=== PATIENT | female | born 1980 | race African-American/Black ===

== ENCOUNTER 2018-05-06 21:29 | Emergency (ER) | payer SELFPAY ==
--- NOTE | 2018-05-06 22:16 | ULT ---
LEFT LOWER EXTREMITY VENOUS ULTRASOUND HISTORY: Left lower extremity pain and edema. TECHNIQUE: Multiplanar amado scale and color doppler images were obtained in a left lower extremity venous ultras ound. Spectral analysis of the doppler waveforms were performed. FINDINGS: The left common femoral vein, profunda femoral vein, superficial femoral vein, and popliteal vein are normal in appearance without visible thrombus. These vessels demonstrate normal compression, flow an d augmentation. The posterior tibial vein and greater saphenous vein are also patent. IMPRESSION: No evidence of left lower extremity DVT. POS: LAYA
== END 2018-05-06 22:45 | disposition home or self-care (01) ==
LOC: ERS 21:29
DX: M79.89 Other specified soft tissue disorders (principal); R79.1 Abnormal coagulation profile; E11.9 Type 2 diabetes mellitus without complications; I10 Essential (primary) hypertension; Z79.899 Other long term (current) drug therapy; Z79.84 Long term (current) use of oral hypoglycemic drugs; Z79.82 Long term (current) use of aspirin

== ENCOUNTER 2018-05-11 16:01 | Inpatient (IN) | payer SELFPAY ==
[2018-05-11 17:04] LABS: #Basophils 0.1 thou/uL (0.0-0.2); #Eosinphils 0.2 thou/uL (0.0-0.7); #Lymphocytes 3.5 thou/uL (1.20-3.40); #Monocytes 0.8 thou/uL (0.11-0.59); #Neutrophils 4.9 thou/uL (1.40-6.50); %Basophils 0.9 % (0.0-1.0); %Eosinophils 1.9 % (0.0-10.0); %Lymphocytes 37.1 % (21.0-51.0); %Monocytes 8.1 % (0.0-10.0); Mean Corpuscular HGB CONC 33.2 g/dL (32.0-36.0); Mean Corpuscular Hemoglobin 30.2 pg (27.0-31.0); Mean Corpuscular Volume 90.9 fL (78.0-98.0); Mean Platelet Volume 6.7 fL (7.4-10.4); Platelet Count 453 thou/uL (130-400); RBC Distribution Width 11.6 % (11.5-14.5); Red Blood Cell (RBC) Count 4.95 mill/uL (4.20-5.40); White Blood Cell (WBC) Count 9.5 thou/uL (4.8-10.8)
[2018-05-11 17:31] LABS: ALT (SGPT) 398 U/L (8-55); AST (SGOT) 605 U/L (5-34); Albumin 3.9 g/dL (3.5-5.0); Alkaline Phosphatase 75 U/L (40-150); Anion Gap 15 mmol/L (10-20); BUN (Urea Nitrogen) 11 mg/dL (7.0-18.7); Bilirubin, Total 0.4 mg/dL (0.2-1.2); Calc. Creatinine Clearance 0 mL/min (70-130); Calcium 9.5 mg/dL (7.8-10.44); Carbon Dioxide 23 mmol/L (22-29); Chloride 103 mmol/L (98-107); Estimated GFR-MDRD Greater than 90; Globulin 3.7 g/dL (2.4-3.5); Glucose 135 mg/dL (70-105); Potassium 3.8 mmol/L (3.5-5.1); Protein, Total 7.6 g/dL (6.0-8.3); Sodium 137 mmol/L (136-145)
[2018-05-11 18:39] LABS: CK (CPK) 22154 U/L (29-168)
[2018-05-11] MEDS ORDERED: Sodium Bicarbonate 150 MEQ in Dextrose 5% in Water 1,000 ML IV SCH (19:00)
[2018-05-11 19:47] LABS: Bilirubin Negative (Negative); Blood, Urine Negative (Negative); Clarity CLOUDY (Clear); Glucose, Urine (Dipstick) Negative (Negative); Leukocyte Small (Negative); Nitrite Negative (Negative); Protein, Urine (Dipstick) Negative (Neg-Trace); Specific Gravity, Urine 1.022 (1.002-1.036)
[2018-05-11 19:49] LABS: Hyaline Casts/LPF 0-3 HYALINE CAST LPF (0-3 Hyaline); Pathc Cast-AUWi Flag 0.14 (0-2.49)
[2018-05-11 19:55] LABS: Cocaine Metabolite Screen Not Detected (NotDetected); Medtox Reader # READER 4; Phencyclidine (PCP) Not Detected (NotDetected); THC/Cannabinoid Screen Not Detected (NotDetected)
[2018-05-11 19:56] LABS: Amphetamine Not Detected (NotDetected); Barbiturates Screen Not Detected (NotDetected); Benzodiazepine Screen Not Detected (NotDetected); Medtox Control Line Valid? VALID (VALID); Methadone Not Detected (NotDetected); Methamphetamine Not Detected (NotDetected); Opiate Screen Detected (NotDetected); Oxycodone Screen Not Detected (NotDetected); Tricyclic Screen Not Detected (NotDetected)
[2018-05-11 20:01] LABS: Bacteria/HPF 1+ HPF (None Seen); RBC/HPF 0-3 HPF (0-3)
--- NOTE | 2018-05-11 20:56 | ULT ---
RIGHT UPPER QUADRANT ULTRASOUND: 05/11/18 HISTORY: Abdominal pain. Multiple longitudinal and transverse images of the right upper quadrant of the abdomen is obtained us ing a multihertz curvilinear transducer. Real time, color flow, and spectral waveform doppler analysi s used to evaluate the right upper quadrant of the abdomen. Images demonstrate some fibrofatty changes seen in the liver. There is some hepatomegaly noted. Liver measurement measures 18.6 cm in the midclavicular line. The gallbladder is visualized containing numerous echogenic foci compatible with gallstones. The gall bladder wall is not significantly thickened measuring 2 mm. The common bile duct is of normal size me asuring 6.7 mm being the upper limits of normal in size. No definite evidence of intrahepatic biliary dilatation is seen. The visualized portion of pancreas is unremarkable. The right is unremarkable with no evidence of masses or lesions. IMPRESSION: 1. Cholelithiasis without evidence of obvious cholecystitis. 2. Moderately dilated common bile duct. Choledocholithiasis cannot be completely excluded. Corre late with laboratory findings and clinical evaluation. POS: LAYA
[2018-05-11] MEDS ORDERED: Ondansetron HCl/PF 4 MG/2 ML Vial IVP PRN (22:03)
[2018-05-11] MEDS ORDERED: Bisacodyl 5 MG TAB PO PRN (22:03)
[2018-05-11] MEDS ORDERED: Acetaminophen 650 MG Suppository PR PRN (22:03)
[2018-05-11] MEDS ORDERED: Senokot 8.6 MG TAB PO PRN (22:03)
[2018-05-11] MEDS ORDERED: Ondansetron ODT 4 MG TAB PO PRN (22:03)
[2018-05-11 23:19] VITALS: BMI 54.1
[2018-05-11] MEDS: Acetaminophen 325 MG TAB PO PRN (23:49)
[2018-05-12] MEDS: Sodium Chloride 0.9% 1,000 ML IV SCH ×6 (00:15→20:24)
[2018-05-12] MEDS ORDERED: Dextrose 50% Abboject 50 ML SYRINGE SLOW IVP PRN (00:18)
[2018-05-12] MEDS ORDERED: Dextrose 5% in Water 1,000 ML IV PRN (00:18)
[2018-05-12] MEDS ORDERED: HumaLOG 300 UNITS/3 ML VIAL SC PRN (00:18)
[2018-05-12 00:52] LABS: Anion Gap 12 mmol/L (10-20); BUN (Urea Nitrogen) 11 mg/dL (7.0-18.7); Calc. Creatinine Clearance 205 mL/min (70-130); Carbon Dioxide 27 mmol/L (22-29); Chloride 103 mmol/L (98-107); Estimated GFR-MDRD Greater than 90; Glucose 164 mg/dL (70-105); Potassium 3.6 mmol/L (3.5-5.1); Sodium 138 mmol/L (136-145)
--- NOTE | 2018-05-12 00:52 | HP ---
CHIEF COMPLAINT: The patient is complaining of bilateral lower extremity pain and upper extremity pain. HISTORIAN: The patient. HISTORY OF PRESENT ILLNESS: This is a 38-year-old female with past medical history of hypertension, diabetes mellitus type 2, who is presenting to the ED with generalized pain. Per patient, the pain started at the lower extremities bilaterally, a week prior to this admission. The patient stated that, she was trying to get up when she was sitting down, but it was very difficult for her to get up. She had to push herself and this has never happened to her before. Patient stated that she thought things were going to get better, but after 4 days of waiting to see if things are going to get better, things turn to the worse. These were progressively getting worse. Now, her upper extremities were also feeling very weak and very painful and it was spreading to her neck. Per the patient, she went to [facility] and labs were done and patient stated that she also got an ultrasound of the left lower extremity to rule out DVT. Patient stated that she was discharged home after the test came back negative and the patient was told to follow up with her primary care physician. Patient followed up with the primary care physician on Thursday, which was yesterday prior to the day of admission and patient stated that after going to her primary care doctor, she was not feeling too well, so she came back to the emergency room. Patient stated that the labs were run again and she was discharged home once again, but throughout the course of the day, which is the day of the admission, which is 05/12/2018, the patient received a phone call from the primary care physician who stated that she had a CK of 20,000 and then because of this lab abnormality, she was supposed to come to the emergency room. Patient came to the emergency room and the patient was then admitted to our service. REVIEW OF SYSTEMS: Positive for generalized pain and weakness. Positive for muscle soreness and some shortness of breath, otherwise as documented in the HPI. All other systems were reviewed and are negative. PAST MEDICAL HISTORY: Hypertension and diabetes mellitus. FAMILY HISTORY: Diabetes and cancer runs through the patient's family. PAST SURGICAL HISTORY: Right hip, right wrist, left ankle surgeries. PSYCHIATRIC HISTORY: The patient does not have any psych history. SOCIAL HISTORY: Patient drinks occasionally. The patient denies smoking and the patient denies using illicit drugs. ALLERGIES: The patient does not have any drug allergies. CURRENT MEDICATIONS: Aspirin 81 mg daily, hydrochlorothiazide, she takes 25 mg daily, lisinopril, she takes 5 mg daily, and metformin she takes 1000 b.i.d. PHYSICAL EXAMINATION: VITAL SIGNS: Patient's blood pressure was 149/77, pulse 118, respiratory rate of 16, O2 sat is 96 on room air. GENERAL APPEARANCE: The patient is sitting in bed at a 45 degree angle, does not appear to be in any distress. Patient is speaking in full sentences. HEENT: Normocephalic, atraumatic. Pupils are equally round and reactive to light. No scleral icterus. NECK: Supple. No meningeal signs. Trachea is midline. CHEST: Breath sounds are clear, no wheezing, no rales, no rhonchi. CARDIOVASCULAR: Patient is tachycardic, positive S1, S2. No murmurs, no rubs, no gallops appreciated. ABDOMEN: Obese abdomen, nontender, nondistended. No pulsatile masses. No rigidity, no guarding. EXTREMITIES: Upper extremity, patient does not have any tenderness at the upper extremities. No edema, no clubbing, no cyanosis. Lower extremity, patient does have some soreness of the lower extremity with palpation. Good pulses. Right lower extremity has some weakness compared to the left. NEUROLOGIC: Cranial nerves II-XII grossly intact. No focal neurologic deficits noted. SKIN: Warm, dry and intact. No rashes seen. PSYCHIATRIC: The patient is alert and oriented x3. IMAGING: EKG patient is sinus tachycardic. ED COURSE: The patient is on bicarbonate drip and was given morphine 4 mg for pain and patient was given 2 L of normal saline. Abdomen ultrasound right upper quadrant shows cholelithiasis without evidence of obvious cholecystitis, moderately dilated common bile duct, choledocholithiasis cannot be completely excluded, correlate with laboratory findings and clinical evaluations. LABORATORY DATA: WBC 9.5, hemoglobin 15.0, hematocrit 45.0, platelet count is 453. Sodium 137, potassium 3.8, chloride 103, anion gap 15, BUN is 11, creatinine is 0.71, glucose 135, calcium 9.5, AST 605, ALT 398, alkaline phosphatase 75. Creatinine kinase is 22,154. Albumin is 3.9. Lipase is 50. Urinalysis: Urine color is yellow, cloudy, trace ketones, negative for blood, negative for nitrite, negative for bilirubin 1.0 urobilinogen, small leukoesterase. Toxicology positive for opioids. ASSESSMENT AND PLAN: This is a 38-year-old female with past medical history of diabetes and hypertension being admitted for: 1. Rhabdomyolysis, etiology unclear at this time, but cannot rule out inflammatory myositis or viral myositis. At this point, we will give patient IV fluids. We will discontinue D5 with bicarbonate. We will do normal saline at 200 mL per hour and we will trend BMP and we will monitor the patient's CK. We will also monitor patient's labs in the morning. 2. History of diabetes. We will hold metformin at this time. We will do insulin sliding scale. 3. Hypertension. We will continue patient on lisinopril. We will hold hydrochlorothiazide at this time. We will monitor the patient's blood pressure and we will continue other blood pressure medication as needed. 4. Deep venous thrombosis and gastrointestinal prophylaxis. 5. Transaminitis. We will trend patient's AST and ALT in the morning. DISCUSSION: At this point, it is very important for patient to see a master fire control technician or merchandise supervisor and possibly get EMG outpatient or to get muscle biopsy just to evaluate and possibly diagnose the patient with myositis. We will follow up on hepatitis panel as well since the patient had transaminitis. YANA
[2018-05-12 01:21] LABS: CK (CPK) 16566 U/L (29-168)
[2018-05-12 01:41] LABS: ALT (SGPT) 305 U/L (8-55); AST (SGOT) 428 U/L (5-34); Albumin 3.1 g/dL (3.5-5.0); Alkaline Phosphatase 70 U/L (40-150); Anion Gap 15 mmol/L (10-20); BUN (Urea Nitrogen) 11 mg/dL (7.0-18.7); Bilirubin, Total 0.3 mg/dL (0.2-1.2); Calc. Creatinine Clearance 205 mL/min (70-130); Calcium 8.1 mg/dL (7.8-10.44); Carbon Dioxide 24 mmol/L (22-29); Chloride 104 mmol/L (98-107); Estimated GFR-MDRD Greater than 90; Globulin 2.9 g/dL (2.4-3.5); Glucose 167 mg/dL (70-105); Magnesium 1.8 mg/dL (1.6-2.6); Potassium 3.6 mmol/L (3.5-5.1); Sodium 139 mmol/L (136-145)
[2018-05-12 01:50] LABS: Hep C IgG Ab Non-Reactive (NonReactive); Hep C Index 0.08 S/CO (0-0.79); Hepatitis B Core IGM Abs Non-Reactive (NonReactive)
[2018-05-12 02:55] LABS: Hep B Surf AB Reactive (NonReactive)
[2018-05-12 02:56] LABS: HBSAB Concentration 23.07 mIU/mL; Hep B Core Total Ab Reactive (NonReactive); Hep B Core Total Index 10.97 S/CO (0-0.79)
[2018-05-12 08:51] LABS: Anion Gap 9 mmol/L (10-20); BUN (Urea Nitrogen) 9 mg/dL (7.0-18.7); Calc. Creatinine Clearance 217 mL/min (70-130); Calcium 7.8 mg/dL (7.8-10.44); Carbon Dioxide 27 mmol/L (22-29); Chloride 106 mmol/L (98-107); Estimated GFR-MDRD Greater than 90; Glucose 118 mg/dL (70-105); Sodium 138 mmol/L (136-145)
[2018-05-12] MEDS: Aspirin 81 mg Enteric Coated Tablet PO SCH (08:58)
[2018-05-12] MEDS: Lisinopril 5 MG TAB PO SCH (08:58)
[2018-05-12 09:18] LABS: CK (CPK) 15706 U/L (29-168)
[2018-05-12] MEDS ORDERED: Ketorolac Tromethamine 30 MG/ML VIAL IVP SCH (10:15)
--- NOTE | 2018-05-12 13:17 | PDOC.PN ---
- Subjective Encounter Start Date: 05/12/18 Encounter Start Time: 13:05 Subjective: f/u for rhabdomyolysis/transaminitis of unclear etiology. Receiving IVF's -: and bicarbonate. Overall feeling better. - Objective Resuscitation Status: Resuscitation Status FULL:Full Resuscitation MAR Reviewed: Yes Vital Signs & Weight: Vital Signs (12 hours) Temp Pulse Resp BP BP Pulse Ox 05/12/18 11:49 98.3 F 81 18 166/85 H 96 05/12/18 09:04 97 05/12/18 08:58 90 111/68 05/12/18 08:03 97.9 F 111 H 18 111/68 93 L Weight Weight 277 lb 1.6 oz I&O: 05/11/18 05/12/18 05/13/18 06:59 06:59 06:59 Intake Total 1216 Balance 1216 Result Diagrams: 05/11/18 16:57 05/12/18 08:22 Additional Labs: Accuchecks 05/12/18 05/12/18 11:19 05:31 POC Glucose 137 H 118 H Laboratory Tests 05/11/18 05/12/18 05/12/18 16:57 00:18 00:21 AST 605 H 428 H ALT 398 H 305 H Creatine Kinase 27234 H 89788 H Hep Bs Antibody Hep Bs Antibody Index Hep B Core Total Ab Hep B Core IgM Ab Hepatitis C Antibody 05/12/18 05/12/18 00:21 08:22 AST ALT Creatine Kinase 85341 H Hep Bs Antibody Reactive Hep Bs Antibody Index 23.07 Hep B Core Total Ab Reactive H Hep B Core IgM Ab Non-Reactive Hepatitis C Antibody Non-Reactive Radiology Reviewed by me: Yes (ABD sono - cholelithiasis without cholecystitis) Phys Exam - Physical Examination Constitutional: NAD HEENT: PERRLA, sclera anicteric, oral pharynx no lesions Neck: no nodes, no JVD, supple, full ROM Respiratory: no wheezing, no rhonchi, clear to auscultation bilateral Cardiovascular: RRR, no significant murmur, no rub, gallop Gastrointestinal: soft, non-tender, no distention, positive bowel sounds Musculoskeletal: no edema, pulses present Neurological: normal sensation, moves all 4 limbs Psychiatric: normal affect, A&O x 3 Skin: no rash, normal turgor, cap refill <2 seconds Dx/Plan (1) Rhabdomyolysis Code(s): M62.82 - RHABDOMYOLYSIS Status: Acute Comment: Etiology unclear, improving with supportive mgmt, continue IVF's, serial CK's (2) Transaminitis Code(s): R74.0 - NONSPEC ELEV OF LEVELS OF TRANSAMNS & LACTIC ACID DEHYDRGNSE Status: Acute Comment: Likely secondary to #1, improving, avoid hepatotoxic medications, serial LFT's (3) Diabetes type 2, controlled Code(s): E11.9 - TYPE 2 DIABETES MELLITUS WITHOUT COMPLICATIONS Status: Chronic Comment: ADA, serial accuchecks, hold Metformin another 24h (4) Hypertension Code(s): I10 - ESSENTIAL (PRIMARY) HYPERTENSION Status: Chronic Qualifiers: Hypertension type: essential hypertension Qualified Code(s): I10 - Essential (primary) hypertension Comment: Continue Lisinopril, hold HCTZ, serial monitoring (5) Morbid obesity with BMI of 50.0-59.9, adult Code(s): E66.01 - MORBID (SEVERE) OBESITY DUE TO EXCESS CALORIES; Z68.43 - BODY MASS INDEX (BMI) 50-59.9 , ADULT Status: Chronic Comment: Low-fat diet - Plan out of bed/ambulate Stable currently -: Decrease IVF's 125ml/h -: Hold HCTZ and Metformin -: Toradol 15mg IV q6h prn pain -: AM lab: BMP, CK, Mg++ * .
[2018-05-12] MEDS: Acetaminophen 325 MG TAB PO PRN (14:58)
[2018-05-12] MEDS: Ketorolac Tromethamine 30 MG/ML VIAL IVP PRN (16:55)
[2018-05-13 04:53] LABS: ALT (SGPT) 288 U/L (8-55); AST (SGOT) 399 U/L (5-34); Albumin 3.1 g/dL (3.5-5.0); Alkaline Phosphatase 60 U/L (40-150); Anion Gap 9 mmol/L (10-20); BUN (Urea Nitrogen) 11 mg/dL (7.0-18.7); Bilirubin, Total 0.3 mg/dL (0.2-1.2); Calc. Creatinine Clearance 214 mL/min (70-130); Calcium 8.2 mg/dL (7.8-10.44); Carbon Dioxide 26 mmol/L (22-29); Chloride 108 mmol/L (98-107); Estimated GFR-MDRD Greater than 90; Globulin 2.7 g/dL (2.4-3.5); Glucose 128 mg/dL (70-105); Protein, Total 5.8 g/dL (6.0-8.3); Sodium 139 mmol/L (136-145)
[2018-05-13] MEDS: Sodium Chloride 0.9% 1,000 ML IV SCH ×4 (05:21→20:46)
[2018-05-13] MEDS: Ketorolac Tromethamine 30 MG/ML VIAL IVP PRN ×3 (05:22→23:08)
[2018-05-13] MEDS: Aspirin 81 mg Enteric Coated Tablet PO SCH (09:28)
[2018-05-13] MEDS: Lisinopril 5 MG TAB PO SCH (09:28)
--- NOTE | 2018-05-13 15:00 | PDOC.PN ---
- Subjective Encounter Start Date: 05/13/18 Encounter Start Time: 14:40 Subjective: f/u for rhabdomyolysis of unclear etiology receiving IVF's. Feeling better -: overall with some soreness of LE's. - Objective Resuscitation Status: Resuscitation Status FULL:Full Resuscitation MAR Reviewed: Yes Vital Signs & Weight: Vital Signs (12 hours) Temp Pulse Resp BP BP Pulse Ox 05/13/18 09:28 90 123/86 05/13/18 07:37 98.5 F 90 20 123/84 98 05/13/18 07:27 98 Weight Weight 277 lb 1.6 oz I&O: 05/12/18 05/13/18 05/14/18 06:59 06:59 06:59 Intake Total 1216 2873 Balance 1216 2873 Result Diagrams: 05/11/18 16:57 05/13/18 04:20 Additional Labs: Accuchecks 05/13/18 05/13/18 05/12/18 11:31 04:39 19:55 POC Glucose 93 115 H 111 H 05/12/18 16:50 POC Glucose 96 Laboratory Tests 05/11/18 05/12/18 05/12/18 16:57 00:18 00:21 AST 605 H 428 H ALT 398 H 305 H Creatine Kinase 18872 H 61459 H Hep Bs Antibody Hep Bs Antibody Index Hep B Core Total Ab Hep B Core IgM Ab Hepatitis C Antibody 05/12/18 05/12/18 00:21 08:22 AST ALT Creatine Kinase 02701 H Hep Bs Antibody Reactive Hep Bs Antibody Index 23.07 Hep B Core Total Ab Reactive H Hep B Core IgM Ab Non-Reactive Hepatitis C Antibody Non-Reactive Phys Exam - Physical Examination Constitutional: NAD HEENT: PERRLA, sclera anicteric, oral pharynx no lesions Neck: no nodes, no JVD, supple, full ROM Respiratory: no wheezing, no rales, no rhonchi, clear to auscultation bilateral S1, S2 Cardiovascular: RRR (S), no significant murmur, no rub, gallop Gastrointestinal: soft, non-tender, no distention, positive bowel sounds Musculoskeletal: no edema, pulses present Neurological: normal sensation, moves all 4 limbs Psychiatric: normal affect, A&O x 3 Skin: no rash, normal turgor, cap refill <2 seconds Dx/Plan (1) Rhabdomyolysis Code(s): M62.82 - RHABDOMYOLYSIS Status: Acute Comment: Etiology unclear, improving with supportive mgmt, continue IVF's, serial CK's (2) Transaminitis Code(s): R74.0 - NONSPEC ELEV OF LEVELS OF TRANSAMNS & LACTIC ACID DEHYDRGNSE Status: Acute Comment: Likely secondary to #1, improving, avoid hepatotoxic medications, serial LFT's (3) Diabetes type 2, controlled Code(s): E11.9 - TYPE 2 DIABETES MELLITUS WITHOUT COMPLICATIONS Status: Chronic Comment: ADA, serial accuchecks, hold Metformin another 24h (4) Hypertension Code(s): I10 - ESSENTIAL (PRIMARY) HYPERTENSION Status: Chronic Qualifiers: Hypertension type: essential hypertension Qualified Code(s): I10 - Essential (primary) hypertension Comment: Continue Lisinopril, hold HCTZ, serial monitoring (5) Morbid obesity with BMI of 50.0-59.9, adult Code(s): E66.01 - MORBID (SEVERE) OBESITY DUE TO EXCESS CALORIES; Z68.43 - BODY MASS INDEX (BMI) 50-59.9 , ADULT Status: Chronic Comment: Low-fat diet - Plan plan discussed w/ family, out of bed/ambulate Stable overall -: Decrease IVF's 100ml/h -: OOB/ambulate -: Avoid hepatotoxic agents -: Lab: CPK today * AM lab: CMP, CK
[2018-05-14 05:02] LABS: ALT (SGPT) 253 U/L (8-55); AST (SGOT) 284 U/L (5-34); Alkaline Phosphatase 57 U/L (40-150); Anion Gap 8 mmol/L (10-20); BUN (Urea Nitrogen) 12 mg/dL (7.0-18.7); Bilirubin, Total 0.3 mg/dL (0.2-1.2); Calc. Creatinine Clearance 227 mL/min (70-130); Calcium 8.1 mg/dL (7.8-10.44); Carbon Dioxide 26 mmol/L (22-29); Chloride 111 mmol/L (98-107); Estimated GFR-MDRD Greater than 90; Globulin 2.7 g/dL (2.4-3.5); Glucose 125 mg/dL (70-105); Protein, Total 5.7 g/dL (6.0-8.3); Sodium 141 mmol/L (136-145)
[2018-05-14 05:28] LABS: CK (CPK) 12166 U/L (29-168)
[2018-05-14 07:24] VITALS: TEMP 98.3
[2018-05-14] MEDS: Aspirin 81 mg Enteric Coated Tablet PO SCH (09:06)
[2018-05-14] MEDS: Lisinopril 5 MG TAB PO SCH (09:06)
[2018-05-14] MEDS: Acetaminophen 325 MG TAB PO PRN (09:06)
[2018-05-14 09:09] VITALS: BP 115/83
[2018-05-14] MEDS: Sodium Chloride 0.9% 1,000 ML IV SCH (12:37)
--- NOTE | 2018-05-14 13:29 | DIS ---
DATE OF ADMISSION: 05/11/2018 DATE OF DISCHARGE: 05/14/2018 DISCHARGE DIAGNOSES: 1. Acute rhabdomyolysis, etiology unclear. 2. 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 3. Transaminitis, improved. 4. Diabetes mellitus type 2, stable. 5. Hypertension, stable. 6. Morbid obesity. CONSULTATIONS: None. PERTINENT LAB AND X-RAY FINDINGS: Basic metabolic profile within normal limits. Calcium 8.0. Magne sium ranged between 1.8-1.9, AST ranged between 284-605. ALT ranged between 253-398, total CK ranged between 12,166-22,154. CBC showed a platelet count of 453. Urine drug screen positive for opiates. Hepatitis B core total antibody reactive. Portable chest x-ray dated 05/06/2018 showed no acute ca rdiopulmonary process. Left lower extremity venous Doppler study dated 05/06/2018 showed no evidence for DVT. Abdominal ultrasound dated 05/11/2018 showed cholelithiasis without cholecystitis. HOSPITAL COURSE: The patient was initially admitted to the medical floor after presenting with bilat eral lower extremity weakness and pain. The patient underwent extensive evaluation with a total CK o f 22,000 at the time of admission concerning for acute rhabdomyolysis of unclear etiology. The patie nt was placed on IV fluids as well as sodium bicarbonate and monitor for clinical response. The diya ent had slow improvement in overall total CK values, decreasing to approximately 12,000 by the time o f discharge. Exact etiology of the rhabdomyolysis and myositis is unclear, likely autoimmune process or potential viral exposure. No current evidence to suggest a toxic myositis. The patient overall clinically improved with supportive management, intravenous fluids and pain control. The patient has been ambulatory during the hospital course and voiding appropriately. I have examined the patient a t the time of discharge and discuss followup recommendations, at which point, the patient verbalized understanding and agreement. The patient overall clinically stable and ready for discharge on 2017. DISCHARGE MEDICATIONS: 1. Enteric coated aspirin 81 mg 1 tablet p.o. daily. 2. Hydrochlorothiazide 25 mg p.o. daily. 3. Lisinopril 5 mg 1 tablet p.o. daily. 4. Metformin extended release 1000 mg p.o. b.i.d. FOLLOWUP: The patient will follow up with Dr. Mary Rodriguez within 7 days of discharge. The patie nt may also follow up with Dr. Millan or Dr. Herrera with [facility] in [place], [place] an d to call their office for appointment time and date. CONDITION ON DISCHARGE: Stable. ACTIVITY: Ad moncho. DIET: ADA and heart healthy. CODE STATUS: FULL. DISPOSITION: Home 05/14/2018. Total time preparing and coordinating discharge is 34 minutes.
== END 2018-05-14 14:24 | disposition home or self-care (01) | DRG 558 ==
LOC: ERS 16:01 → T4-A 18:30
PROVIDERS: ADMIT Internal Medicine; ATTEND Internal Medicine
DX: M62.82 Rhabdomyolysis (principal); Z68.43 Body mass index [BMI] 50.0-59.9, adult; I10 Essential (primary) hypertension; E11.9 Type 2 diabetes mellitus without complications; K80.20 Calculus of gallbladder without cholecystitis without obstruction; M60.9 Myositis, unspecified; E66.01 Morbid (severe) obesity due to excess calories; K83.8 Other specified diseases of biliary tract; Z79.84 Long term (current) use of oral hypoglycemic drugs; Z79.82 Long term (current) use of aspirin; Z79.899 Other long term (current) drug therapy
CPT/HCPCS: 36415; 36416; 76705; 80048; 80053; 80306; 81015; 82550; 83690; 83735; 85025; 86704; 86705; 86706; 86709; 86803; 93005; A4216; J1885; J2270; J7070

== ENCOUNTER 2018-10-06 12:18 | Emergency (ER) | payer OTHER, SELFPAY ==
[2018-10-06] MEDS ORDERED: Morphine 4 MG/ML VIAL ONE (12:31)
[2018-10-06] MEDS ORDERED: Ondansetron PF 4 MG/2 ML Vial ONE (12:31)
[2018-10-06 12:52] LABS: #Eosinphils 0.1 thou/uL (0.0-0.7); #Monocytes 0.5 thou/uL (0.11-0.59); #Neutrophils 4.8 thou/uL (1.40-6.50); %Basophils 0.3 % (0.0-1.0); %Eosinophils 1.3 % (0.0-10.0); %Lymphocytes 35.1 % (21.0-51.0); %Neutrophils 57.3 % (42.0-75.0); Hemoglobin 13.4 g/dL (12.0-16.0); Mean Corpuscular HGB CONC 32.8 g/dL (32.0-36.0); Mean Corpuscular Volume 91.7 fL (78.0-98.0); Platelet Count 411 thou/uL (130-400); RBC Distribution Width 11.4 % (11.5-14.5); Red Blood Cell (RBC) Count 4.45 mill/uL (4.20-5.40); White Blood Cell (WBC) Count 8.4 thou/uL (4.8-10.8)
[2018-10-06 12:59] LABS: BHCG - Serum Negative (NEGATIVE); Pregs Control Background? CLEAR/WHITE (CLR/WHITE); Pregs Control Bar Appear? YES (CONTROL BAR)
[2018-10-06 13:20] LABS: ALT (SGPT) 22 U/L (8-55); AST (SGOT) 15 U/L (5-34); Albumin 3.7 g/dL (3.5-5.0); Alkaline Phosphatase 78 U/L (40-150); Anion Gap 13 mmol/L (10-20); BUN (Urea Nitrogen) 10 mg/dL (7.0-18.7); Bilirubin, Total 0.4 mg/dL (0.2-1.2); CK (CPK) 165 U/L (29-168); Calc. Creatinine Clearance 0 mL/min (70-130); Calcium 8.9 mg/dL (7.8-10.44); Carbon Dioxide 23 mmol/L (22-29); Chloride 106 mmol/L (98-107); Estimated GFR-MDRD Greater than 90; Globulin 3.8 g/dL (2.4-3.5); Glucose 179 mg/dL (70-105); Lipase 53 U/L (8-78); Potassium 3.6 mmol/L (3.5-5.1); Protein, Total 7.5 g/dL (6.0-8.3); Sodium 138 mmol/L (136-145)
[2018-10-06 13:40] LABS: Bilirubin Negative (Negative); Blood, Urine Negative (Negative); Clarity CLEAR (Clear); Glucose, Urine (Dipstick) Negative (Negative); Leukocyte Negative (Negative); Nitrite Negative (Negative); Protein, Urine (Dipstick) Negative (Neg-Trace); Specific Gravity, Urine 1.026 (1.002-1.036)
--- NOTE | 2018-10-06 14:02 | ULT ---
RIGHT UPPER QUADRANT ULTRASOUND: CLINICAL HISTORY: Pain. COMPARISON: Reference is made to 05/11/2018 exam. FINDINGS: There is redemonstration of cholelithiasis. Gallbladder is mildly contracted. No evidence of signif icant pericholecystic fluid. Borderline size gallbladder wall is noted at approximately 3 mm. The l iver demonstrates increased echogenicity without focal lesion evident. There is no ascites. The com mon duct measures 4 mm in diameter where visualized, which is within normal limits. IMPRESSION: 1. Cholelithiasis. 2. Increased echogenicity of the liver which may relate to fatty infiltration. Correlate with liver function enzymes. 3. There is no sonographic evidence of acute cholecystitis identified. POS: SATINDER
== END 2018-10-06 14:14 | disposition home or self-care (01) ==
LOC: ERS 12:18
DX: K80.20 Calculus of gallbladder without cholecystitis without obstruction (principal); E11.9 Type 2 diabetes mellitus without complications; I10 Essential (primary) hypertension; Z79.82 Long term (current) use of aspirin; Z79.84 Long term (current) use of oral hypoglycemic drugs
CPT/HCPCS: 76705; 80053; 81003; 82550; 83690; 84703; 85025; 93005; 96361; 96374; 96375; J2270; J2405

== ENCOUNTER 2018-10-15 08:20 | Observation (INO) | payer OTHER ==
[2018-10-14 10:59] VITALS: BMI 52.9
--- NOTE | 2018-10-14 15:48 | HP ---
HISTORY OF PRESENT ILLNESS: Jennifer Reddy is a 38-year-old obese black female, [employer] [facility]. She is single with 3 children, , has had tubal ligation. She presents with abdominal pain, epigastric. She weighs 271 pounds, 54 BMI. She has comorbidities of hypertension and diabetes, noninsulin dependent. The patient is followed by Dr. Mary Rodriguez. The patient had upper abdominal pain, presented to the emergency room at [facility] had a CAT scan of the abdomen and pelvis and ultrasound revealing constipation, indistinct shadow/density ileocecal valve area, and gallstones, normal bile duct caliber, normal liver function test, normal CBC. She reports having had a colonoscopy last year. We are waiting on the report from [facility]. Plan is for laparoscopic cholecystectomy. Risks of infection, bleeding, visceral and biliary injury discussed. The patient also has morbid obesity with comorbidities of hypertension and diabetes. She has tried numerous weight loss efforts without durable success. She is interested in bariatric surgery. ALLERGIES: ULTRAM CAUSES HER TO BE JITTERY AND NERVOUS. NO TRUE ALLERGIES BUT ADVERSE SIDE AFFECTS. TOBACCO: None. ALCOHOL: Socially. MEDICATIONS: 1. Lisinopril 5 mg a day. 2. Metformin 1000 mg b.i.d. 3. Aspirin 81 mg a day. PAST SURGICAL HISTORY: x3, tubal ligation, ORIF right hip, ORIF left ankle in 2004. PAST MEDICAL HISTORY: Otherwise, noncontributory. REVIEW OF SYSTEMS: Ten-point noncontributory except as noted above. PHYSICAL EXAMINATION: VITAL SIGNS: 271 pounds, 59 inches, 54.8 BMI, 106/57, 79, 97.9 degrees. HEAD, EARS, EYES, NOSE, AND THROAT: Unremarkable. LUNGS: Clear to auscultation. CARDIAC: Regular rate and rhythm without murmur or gallop. ABDOMEN: Soft, mild tenderness in the epigastric right upper quadrant. EXTREMITIES: Unremarkable. ASSESSMENT AND PLAN: 1. Cholecystitis and cholelithiasis, acute on chronic. Recommend laparoscopic video cholecystectomy. Risks and benefits discussed. Risks of infection, bleeding, visceral and biliary injury, open procedure discussed. She consents. 2. Morbid obesity, comorbidities, diabetes, hypertension. She is interested in bariatric seminars and followup. We will check her insurance for bariatric coverage. I have discussed with her briefly bariatric surgery and she was encouraged to attend seminar. 3. Morbid obesity. 4. Hypertension. 5. Diabetes mellitus. Job ID: [id number]
[2018-10-15] MEDS ORDERED: Ketorolac Tromethamine 30 MG/ML VIAL ONE ×2 (09:50→18:45)
[2018-10-15] MEDS ORDERED: Levofloxacin 500 mg/D5W 100 ml Premix Bag ONE (09:50)
[2018-10-15] MEDS ORDERED: Scopolamine 1.5 mg/72 hour Patch ONE (10:01)
[2018-10-15] MEDS ORDERED: Bupivacaine HCl 0.5%/Epinephrine 1:200,000/PF 30 ml Vial ONE (10:07)
[2018-10-15] MEDS ORDERED: Fentanyl 100 MCG/2 ML VIAL ONE ×3 (10:09→11:56)
[2018-10-15] MEDS ORDERED: Famotidine/PF 20 mg/2ml Vial ONE (10:09)
--- NOTE | 2018-10-15 11:53 | OP ---
DATE OF PROCEDURE: 10/15/2018 PREOPERATIVE DIAGNOSES: Cholecystitis, cholelithiasis, obesity, diabetes, and hypertension. POSTOPERATIVE DIAGNOSES: Cholecystitis, cholelithiasis, obesity, diabetes, and hypertension. PROCEDURE PERFORMED: Laparoscopic video cholecystectomy. ANESTHESIA: General, local 0.5% Marcaine with epinephrine 30 mL total volume used. DESCRIPTION OF PROCEDURE: The patient was taken to the operating room, when under general anesthesia, abdomen was prepared with ChloraPrep and draped in routine fashion. Supraumbilical incision was made. Pneumoperitoneum to 15 mmHg obtained with a Veress needle, replaced with a 5 port laparoscope inserted. Right subxiphoid incision was made and 11 port placed. Right subcostal incision was made in midclavicular and anterior axillary lines, and the 5 port was placed. Liver appeared to be normal. Fundus of the gallbladder was grasped at the cephalad. Infundibulum was grasped and reflected laterally. Cystic artery and duct dissected free. Critical view obtained. Cystic artery and duct double clipped proximally and divided, and gallbladder dissected free from liver bed obtaining good hemostasis prior to division of the final peritoneal attachments. Gallbladder and stones were removed and submitted to Pathology. Good hemostasis ensured with the cautery. Irrigant and pneumoperitoneum evacuated. All instruments were removed and all skin incisions were approximated with interrupted subdermal 4-0 Monocryl and Allisonia glue applied. Job ID: [id number]
[2018-10-15] MEDS ORDERED: HYDROcodone/Acetaminophen 5/325 mg Tablet ONE (13:46)
[2018-10-15] MEDS ORDERED: traMADol HCl 50 MG TAB ONE (14:24)
[2018-10-15] MEDS ORDERED: Morphine 4 MG/ML VIAL ONE (14:42)
[2018-10-15] MEDS ORDERED: Morphine 2 MG/ML SYRINGE ONE (15:06)
[2018-10-15] MEDS ORDERED: Promethazine HCl 25 MG/ML VIAL ONE (15:06)
[2018-10-15] MEDS ORDERED: Rocuronium Bromide 10 MG/ML (10ML VIAL) ONE (15:38)
[2018-10-15] MEDS ORDERED: Ondansetron PF 4 MG/2 ML Vial ONE (15:38)
[2018-10-15] MEDS ORDERED: Lidocaine 1% PF 5 ML VIAL ONE (15:38)
[2018-10-15] MEDS ORDERED: PROPOFOL 200 MG/20 ML VIAL ONE (15:38)
[2018-10-15] MEDS ORDERED: Glycopyrrolate 0.2 MG/ML 5 ML SYRINGE ONE (15:38)
[2018-10-15] MEDS ORDERED: Dexamethasone 20 MG/5 ML VIAL ONE (15:38)
[2018-10-15] MEDS ORDERED: Ondansetron PF 4 MG/2 ML Vial IVP PRN (18:42)
[2018-10-15] MEDS ORDERED: HumaLOG 300 UNITS/3 ML VIAL SC PRN (18:42)
[2018-10-15] MEDS ORDERED: Mag-Al 1200 mg/1200 mg/30 ML UDCUP PO PRN (18:42)
[2018-10-15] MEDS ORDERED: Calcium Carbonate 500 MG ChewTAB PO PRN (18:42)
[2018-10-15] MEDS ORDERED: hydrALAZINE 20 MG/ML VIAL SLOW IVP PRN (18:42)
[2018-10-15] MEDS ORDERED: Dextrose 5% in Water 1,000 ML IV PRN (18:42)
[2018-10-15] MEDS ORDERED: Dextrose 50% Abboject 50 ML SYRINGE SLOW IVP PRN (18:42)
[2018-10-15] MEDS ORDERED: HYDROcodone/Acetaminophen 10/325 mg Tablet PO PRN (18:42)
[2018-10-15] MEDS ORDERED: Acetaminophen 500 MG TAB PO PRN (18:46)
[2018-10-15] MEDS ORDERED: Fentanyl 100 MCG/2 ML VIAL SLOW IVP PRN (18:46)
[2018-10-15] MEDS ORDERED: Acetaminophen/Codeine 30-300mg Tablet PO PRN (18:47)
[2018-10-15] MEDS ORDERED: Enoxaparin Sodium 40 MG/0.4 ML SYRINGE SC SCH (21:00)
[2018-10-15] MEDS ORDERED: Senokot 8.6 MG TAB PO SCH (21:00)
[2018-10-15] MEDS: metFORMIN XR 500 MG TAB PO SCH (22:04)
[2018-10-15] MEDS: Famotidine 20 MG TAB PO SCH (22:05)
[2018-10-15] MEDS: Docusate 100 MG CAP PO SCH (22:05)
[2018-10-15] MEDS: HYDROcodone/Acetaminophen 10/325 mg Tablet PO PRN (22:14)
[2018-10-16] MEDS: Ketorolac Tromethamine 30 MG/ML VIAL IVP SCH ×3 (00:41→12:02)
[2018-10-16 05:09] LABS: #Lymphocytes 2.5 thou/uL (1.20-3.40); #Monocytes 1.2 thou/uL (0.11-0.59); #Neutrophils 11.3 thou/uL (1.40-6.50); %Eosinophils 0.1 % (0.0-10.0); %Lymphocytes 16.7 % (21.0-51.0); %Monocytes 8.1 % (0.0-10.0); %Neutrophils 75.2 % (42.0-75.0); Hemoglobin 11.7 g/dL (12.0-16.0); Mean Corpuscular HGB CONC 32.4 g/dL (32.0-36.0); Mean Corpuscular Hemoglobin 30.3 pg (27.0-31.0); Mean Corpuscular Volume 93.5 fL (78.0-98.0); Mean Platelet Volume 7.3 fL (7.4-10.4); Platelet Count 345 thou/uL (130-400); RBC Distribution Width 11.5 % (11.5-14.5); Red Blood Cell (RBC) Count 3.84 mill/uL (4.20-5.40)
[2018-10-16 05:29] LABS: ALT (SGPT) 37 U/L (8-55); AST (SGOT) 40 U/L (5-34); Albumin 3.2 g/dL (3.5-5.0); Alkaline Phosphatase 65 U/L (40-150); Anion Gap 9 mmol/L (10-20); BUN (Urea Nitrogen) 12 mg/dL (7.0-18.7); Bilirubin, Total 0.3 mg/dL (0.2-1.2); Calc. Creatinine Clearance 216 mL/min (70-130); Calcium 8.9 mg/dL (7.8-10.44); Carbon Dioxide 25 mmol/L (22-29); Chloride 107 mmol/L (98-107); Estimated GFR-MDRD Greater than 90; Glucose 139 mg/dL (70-105); Potassium 4.2 mmol/L (3.5-5.1); Protein, Total 6.2 g/dL (6.0-8.3); Sodium 137 mmol/L (136-145)
[2018-10-16] MEDS: HYDROcodone/Acetaminophen 10/325 mg Tablet PO PRN (05:53)
[2018-10-16 08:21] VITALS: TEMP 98
[2018-10-16] MEDS: Docusate 100 MG CAP PO SCH (08:45)
[2018-10-16] MEDS: Famotidine 20 MG TAB PO SCH (08:45)
[2018-10-16] MEDS: metFORMIN XR 500 MG TAB PO SCH (08:51)
[2018-10-16] MEDS ORDERED: Aspirin 81 mg Enteric Coated Tablet PO SCH (09:00)
[2018-10-16] MEDS ORDERED: Hydrochlorothiazide 25 MG TAB PO SCH (09:00)
[2018-10-16] MEDS ORDERED: Lisinopril 5 MG TAB PO SCH (09:00)
[2018-10-16 12:05] VITALS: BP 109/74
--- NOTE | 2018-10-16 13:39 | PRG ---
DATE OF SERVICE: 10/16/2018 SUBJECTIVE: Jennifer Reddy was admitted last night for pain control. She is status post laparoscopic cholecystectomy. This morning, her liver function tests, CBC, vital signs are normal. She feels much better. OBJECTIVE: LUNGS: Clear to auscultation. CARDIAC: Regular rate and rhythm without murmur or gallop. ABDOMEN: Postoperative tenderness expected, laparoscopic wounds well healed. EXTREMITIES: Unremarkable. ASSESSMENT AND PLAN: Discharge home today. Follow up with me in 2 to 3 weeks. Diet and activity as tolerated. Tylenol, Motrin, Ultram p.r.n. pain. Job ID: [id number]
--- NOTE | 2018-10-16 14:12 | DIS ---
DATE OF ADMISSION: 10/15/2018 DATE OF DISCHARGE: 10/16/2018 DISCHARGE DIAGNOSES: Obesity, diabetes, hypertension, cholecystitis, cholelithiasis, and postoperative pain necessitating hospitalization overnight. PROCEDURES: Laparoscopic video cholecystectomy, kept overnight due to postoperative pain. DISCHARGE MEDICATIONS: 1. Tylenol with codeine. 2. Metformin. 3. Lisinopril. 4. Hydrochlorothiazide. 5. Aspirin. 6. Ultram p.r.n. pain. 7. Tylenol and Motrin p.r.n. pain. FOLLOWUP: Follow up in my office in 2 to 3 weeks. HISTORY: A 38-year-old female presented with outpatient laparoscopic cholecystectomy. Postoperatively had too much pain, was kept overnight and now is discharged home this morning after normal CBC and liver function tests. Her pain is under better control. Her abdomen is soft, nontender. Discharge diet as tolerated. No lifting restrictions. Resume diabetic diet. Avoid narcotics. Job ID: [id number]
== END 2018-10-16 14:48 | disposition home or self-care (01) ==
LOC: SDC 08:20 → SURG B 19:40
PROVIDERS: ADMIT Specialist; ATTEND Specialist
PROC: 0FT44ZZ Resection of Gallbladder, Percutaneous Endoscopic Approach (ICD-10-PCS; principal; 2018-10-15)
DX: K80.10 Calculus of gallbladder with chronic cholecystitis without obstruction (principal); E11.9 Type 2 diabetes mellitus without complications; I10 Essential (primary) hypertension; E66.01 Morbid (severe) obesity due to excess calories; Z68.43 Body mass index [BMI] 50.0-59.9, adult; Z88.5 Allergy status to narcotic agent; Z98.51 Tubal ligation status; Z79.82 Long term (current) use of aspirin; Z79.84 Long term (current) use of oral hypoglycemic drugs; Z79.899 Other long term (current) drug therapy; Z98.890 Other specified postprocedural states
CPT/HCPCS: 36415; 36416; 80053; 85025; 88304; 96372; 96374; 96375; 96376; G0378; J0131; J0670; J1100; J1650; J1885; J1956; J2001; J2270; J2405; J2550; J2704; J3010; S0028

== ENCOUNTER 2018-11-03 05:52 | Day surgery (SDC) | payer OTHER ==
[2018-11-02 11:16] VITALS: BMI 51.1
--- NOTE | 2018-11-03 07:42 | HP ---
HISTORY OF PRESENT ILLNESS: Ms. Jennifer Reddy is a very pleasant 38-year-old female, comes for a colonoscopy because of abdominal pain and abnormal CAT of the abdomen. The patient was seen by me in the office a month ago. She came to the ER with abdominal pain and was found to have possible right colon mass. The patient has had a laparoscopy cholecystectomy on 10/15/2018. The patient had recovered from her surgery and doing pretty well. Her abdominal pain is predominantly at the lower abdomen. She came to the ER and had a CAT scan. The CAT scan shows possibly a mass in the right colon area. The patient is having colonoscopy for the above reason. ALLERGIES: NONE. SOCIAL HISTORY: The patient does not smoke, but drinks alcohol occasionally. MEDICAL ILLNESSES: 1. Obesity. 2. Diabetes. 3. Hypertension. 4. Osteoarthritis. 5. Laparoscopic cholecystectomy. 6. Right hip fracture. 7. Left ankle surgery. 8. Tubal ligation. PHYSICAL EXAMINATION: GENERAL: She is obese, appears comfortable. VITAL SIGNS: Pulse is 70, blood pressure 140/80. HEENT: Conjunctivae clear. CARDIOVASCULAR: First and second heart sounds are heard. LUNGS: Clear to auscultation. ABDOMEN: Soft. Abdomen is nontender at the present time. There is no organomegaly or masses. Bowel sounds are normal. ADMITTING DIAGNOSIS: A 38-year-old female with abdominal pain, abnormal CAT scan of the abdomen. PLAN: Colonoscopy. Job ID: [id number]
--- NOTE | 2018-11-03 11:13 | OP ---
DATE OF PROCEDURE: 11/03/2018 OPERATIVE PROCEDURE: Attempted colonoscopy, incomplete due to large amount of retained solid stool. PREOPERATIVE DIAGNOSES: Abdominal pain, abnormal CAT scan of abdomen showing a mass in the right lower quadrant. POSTOPERATIVE DIAGNOSES: Large amount of solid stool right from the rectum and occupying the left colon. DESCRIPTION OF PROCEDURE: The patient was placed on the left lateral position and was given sedation by Anesthesia Department. A rectal exam was done. The scope was advanced into the rectum. No lesions felt on rectal exam. A Pentax video colonoscope was introduced into the rectum and was found to have a large amount of solid stool. Irrigated water around it and I was able to get up to around 40 cm. I was hoping the colon maybe clear once the sigmoid colon was passed, however, the more I advanced scope, I could see more solid stool and the exam was really not possible because of stool obstructing the colonic lumen. Irrigated again with large amount of water, but I was not able to really get around the fecal bolus in the sigmoid colon. The procedure was terminated. PLAN: We will bring the patient back for colonoscopy in the future. Job ID: [id number]
[2018-11-03] MEDS ORDERED: PROPOFOL 200 MG/20 ML VIAL ONE (14:59)
== END 2018-11-03 09:30 | disposition home or self-care (01) ==
LOC: SDC 05:52
PROVIDERS: ATTEND Internal Medicine Gastroenterology
PROC: 0DJD8ZZ Inspection of Lower Intestinal Tract, Via Natural or Artificial Opening Endoscopic (ICD-10-PCS; principal; 2018-11-03)
DX: R10.9 Unspecified abdominal pain (principal); R93.5 Abnormal findings on diagnostic imaging of other abdominal regions, including retroperitoneum; I10 Essential (primary) hypertension; E66.9 Obesity, unspecified; Z68.43 Body mass index [BMI] 50.0-59.9, adult; E11.9 Type 2 diabetes mellitus without complications; M19.90 Unspecified osteoarthritis, unspecified site; Z90.49 Acquired absence of other specified parts of digestive tract; Z98.51 Tubal ligation status; Z88.5 Allergy status to narcotic agent; Z79.84 Long term (current) use of oral hypoglycemic drugs; Z79.82 Long term (current) use of aspirin; Z79.899 Other long term (current) drug therapy
CPT/HCPCS: J2704

== ENCOUNTER 2018-11-10 12:26 | Day surgery (SDC) | payer OTHER ==
[2018-11-09 08:32] VITALS: BMI 51.1
--- NOTE | 2018-11-10 01:31 | HP ---
HISTORY OF PRESENT ILLNESS: This is a 38-year-old female with abdominal pain, abnormal CAT scan of the abdomen. The patient's pain is over the right lower quadrant. Abdominal CAT scan a month ago was found to have possible mass in the right colon area. She came in for a colonoscopy last week. However , she was not clean out._ The patient is brought in today for reattempt at colonoscopy. ALLERGIES: NONE. MEDICAL ILLNESS: 1. Hypertension. 2. Diabetes mellitus. 3. Abdominal pain. PAST SURGICAL HISTORY: Status post laparoscopic cholecystectomy. SOCIAL HISTORY: The patient does not smoke. She drinks occasional alcohol. PHYSICAL EXAMINATION: GENERAL: She is obese, appears comfortable. VITAL SIGNS: Pulse is 70, blood pressure 130/80. HEENT: Conjunctivae clear. CARDIOVASCULAR SYSTEM: First and second heart sounds are heard. LUNGS: Clear to auscultation. ABDOMEN: Soft. No organomegaly. Abdomen is tender over the right lower quadrant and lower abdomen. There is no rebound or guarding. ADMITTING DIAGNOSIS: A 38-year-old female, abdominal pain, abdominal CAT scan showing lesion in the right colon. PLAN: Colonoscopy. Job ID: [id number] [facility]
[~2018-11-10 12:26] MED LIST: PROPOFOL 200 MG/20 ML VIAL ONE
--- NOTE | 2018-11-10 18:37 | OP ---
DATE OF PROCEDURE: 11/10/2018 OPERATIVE PROCEDURE: Colonoscopy. PREOPERATIVE DIAGNOSES: Abdominal pain, abnormal CAT scan of abdomen showing a mass in the cecum. The patient undergoing colonoscopy. POSTOPERATIVE DIAGNOSES: 1. No cecal mass seen. The ileocecal area, cecum, and appendiceal opening free of any pathology. 2. Scattered diverticular disease all the way to the hepatic flexure and proximal transverse colon. 3. Hemorrhoids. The prep was excellent. DESCRIPTION OF PROCEDURE: The patient was placed on her left lateral position and was given sedation by Anesthesia Department. A rectal exam was done before the scope was advanced into the rectum. No lesions felt on rectal exam. A Pentax video colonoscope was introduced into rectum, advanced all the way to the cecum. The prep was excellent. The mucosa appears normal throughout the colon with normal vascular pattern. In the appendiceal orifice, ileocecal wall, cecum, no pathology seen. In the ascending colon, no pathology seen. In the hepatic flexure area, the patient found to have a few diverticula. In the transverse colon, splenic flexure, descending colon, sigmoid colon, no other pathology except for scattered mild diverticular disease. Retroflexion showed hemorrhoids. DISCHARGE PLANNING: This is a 38-year-old female, came for colonoscopy because of abdominal pain and abnormal CAT scan. CAT scan showed a cecal mass; however, the colonoscopy showed no pathology. DISCHARGE RECOMMENDATIONS: 1. High-fiber diet. 2. Metamucil once a day. 3. The patient was advised to call me if she develops abdominal pain, hematochezia. 4. To come back to clinic in 2 weeks. Job ID: [id number]
== END 2018-11-10 16:15 | disposition home or self-care (01) ==
LOC: SDC 12:26
PROVIDERS: ATTEND Internal Medicine Gastroenterology
PROC: 0DJD8ZZ Inspection of Lower Intestinal Tract, Via Natural or Artificial Opening Endoscopic (ICD-10-PCS; principal; 2018-11-10)
DX: K57.30 Diverticulosis of large intestine without perforation or abscess without bleeding (principal); K64.9 Unspecified hemorrhoids; I10 Essential (primary) hypertension; E11.9 Type 2 diabetes mellitus without complications; Z90.49 Acquired absence of other specified parts of digestive tract; Z88.5 Allergy status to narcotic agent; Z79.84 Long term (current) use of oral hypoglycemic drugs; Z79.82 Long term (current) use of aspirin; Z79.899 Other long term (current) drug therapy
CPT/HCPCS: J2704

== ENCOUNTER 2019-07-27 07:46 | Observation (INO) | payer MEDICAID, OTHER ==
--- NOTE | 2019-07-27 12:51 | HP ---
PRIMARY CARE PROVIDER: Mary Rodriguez DO CHIEF COMPLAINT: Chest pain. HISTORY OF PRESENT ILLNESS: This is a 39-year-old female, who presents to [facility] in transfer from [facility], where the patient initially presented with left upper chest pain. The patient initially described the pain as sharp, intermittent over the last several weeks. The patient states the pain began on 07/26/2019 at approximately 11:15 p.m. without specific inciting event. The patient denied any direct trauma, injury, cough, or shortness of breath. The patient does admit to intermittent nausea, dizziness, and lightheadedness with some vertiginous symptoms. The patient states she has had intermittent symptoms over the last 2-3 months as described previously. The patient states she did not take any specific alleviating medication, and states the symptoms resolved spontaneously. The patient states she was referred to a human resource analyst in the [place] area for cardiac evaluation and consideration for Holter monitor; however, has not been able to complete this evaluation. The patient denies any strong family history of coronary artery disease, but does admit to a personal history of diabetes mellitus and hypertension. The patient states she was recently placed on antihypertensive regimen and continues to take her diabetic regimen of metformin. The patient denies any prior history of cardiac evaluation or echocardiogram. In the emergency room, the patient underwent general evaluation including screening metabolic survey, which was essentially unremarkable. EKG was performed, showing flattening of the T-waves in leads V4 through V6. The patient was also noted with mild sinus tachycardia, but chest imaging was negative. The patient received aspirin, nitroglycerin, and Lopressor, and was referred to the hospitalist service for evaluation. PAST MEDICAL HISTORY: 1. Diabetes mellitus, type 2, on oral hypoglycemics. 2. Hypertension. 3. Morbid obesity. 4. Question of thyroid nodule. PAST SURGICAL HISTORY: 1. Status post bilateral tubal ligation. 2. Status post fracture of the ankle with open reduction and internal fixation. 3. Status post cholecystectomy. CURRENT MEDICATIONS: 1. Metformin 1000 mg p.o. b.i.d. 2. Lasix 20 mg p.o. daily. 3. Aspirin 81 mg p.o. daily. 4. Antihypertensive, unknown type or name. ALLERGIES: TRAMADOL, CAUSING JITTERINESS. LISINOPRIL, CAUSING COUGH. FAMILY HISTORY: Positive for lung cancer and diabetes mellitus. SOCIAL HISTORY: The patient resides in the [facility] area. 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 No tobacco or illicit drug use. Occasional alcohol use. Three children at home. REVIEW OF SYSTEMS: CONSTITUTIONAL: Negative for weight loss or gain, ability to conduct usual activities. SKIN: Negative for rash, itching. EYES: Negative for double vision, pain. ENT/MOUTH: Negative for nose bleeding, neck stiffness, pain, tenderness. CARDIOVASCULAR: Negative for palpitations, dyspnea on exertion, orthopnea. RESPIRATORY: Negative for shortness of breath, wheezing, cough, hemoptysis, fever or night sweats. GASTROINTESTINAL: Negative for poor appetite, abdominal pain, heartburn, nausea, vomiting, constipation, or diarrhea. GENITOURINARY: Negative for urgency, frequency, dysuria, nocturia. MUSCULOSKELETAL: Negative for swelling. NEUROLOGIC/PSYCHIATRIC: Negative for anxiety, depression. ALLERGY/IMMUNOLOGIC: Negative for skin rash, bleeding tendency. Otherwise negative except as stated per HPI. PHYSICAL EXAMINATION: VITAL SIGNS: On admission; blood pressure 130/78, pulse 113, respiratory rate 20, temperature 99.1 degrees Fahrenheit, O2 saturation 97% on room air. GENERAL APPEARANCE: This is a 39-year-old female, alert and oriented x3, pleasant, smiling, in no acute distress. HEENT: Pupils are equal, round, and reactive to light and accommodation. Extraocular muscles are intact. No scleral icterus. No conjunctival injection. Nares are patent. OP is clear. Teeth in good repair. NECK: Supple. No cervical adenopathy. Mild thyromegaly with thyroid nodule in the near midline. Cervical spine with full active and passive range of motion. No meningeal signs noted. CHEST: Lungs are clear to auscultation bilaterally. CARDIOVASCULAR: S1 and S2 with distant heart sounds. No murmur, rub, or gallop appreciated. ABDOMEN: Obese, soft, nontender, and nondistended. Bowel sounds are positive in all 4 quadrants. There is no palpable mass. No rebound or guarding appreciated. Landmarks difficult to palpate due to the patient's body habitus. EXTREMITIES: Warm and dry with fair turgor. Nonpitting edema to bilateral lower extremities. Pulses palpable distally at the dorsalis pedis, posterior tibial, and popliteal arteries bilaterally. Capillary refill less than 2 seconds. NEUROLOGIC: Cranial nerves 2 through 12 are grossly intact. No focal or lateralizing signs appreciated. MUSCULOSKELETAL: Positive tenderness to palpation in the left upper chest wall and pectoral region near the proximal humerus and midportion of left clavicle. Positive tenderness to palpation in the thoracic spine of the medial aspect of the scapula. PERTINENT LABORATORY DATA AND X-RAY FINDINGS: Basic metabolic profile within normal limits. CBC showed a white blood cell count of 13.6, hemoglobin 14, hematocrit 45, and platelet count 416. Troponin negative x2. EKG, dated 07/27/2019, by my interpretation shows sinus mechanism with heart rates in the 90s. Normal R-wave progression noted in the precordial leads. T-wave flattening noted in V4 through V6. No acute ST-T wave changes appreciated. Portable chest x-ray, dated 07/27/2019, showed no acute cardiopulmonary process. ASSESSMENT AND PLAN: 1. Chest pain. The patient will be observed on the telemetry unit. We will proceed with exercise Cardiolite stress testing to rule out underlying ischemia. Continue aspirin 81 mg daily. Check fasting lipid profile. Continue telemetry monitoring. 2. Diabetes mellitus, type 2. Insulin sliding scale for reflexive coverage. Hold metformin. Serial Accu-Cheks q.6 h. 3. Hypertension. We will confirm home blood pressure regimen. Continue serial blood pressure monitoring. 4. Chest wall pain. Education and reassurance. Supportive management as clinically indicated. Range of motion exercises for discharge. 5. Thyroid nodule. Recommend outpatient thyroid ultrasound. Check TSH and free T4 level currently. 6. Prophylaxis. Sequential compression devices while in bed. Pepcid 20 mg p.o. b.i.d. 7. Code status is full. Surrogate medical decision maker not identified. Job ID: [id number]
[2019-07-27] MEDS ORDERED: Dextrose 5% in Water 1,000 ML IV PRN (13:23)
[2019-07-27] MEDS ORDERED: Dextrose 50% Abboject 50 ML SYRINGE IVP PRN (13:23)
[2019-07-27] MEDS ORDERED: Insulin Regular 300 UNITS/3 ML VIAL SC PRN (13:23)
[2019-07-27 13:35] VITALS: BMI 57.7
[2019-07-27 14:17] LABS: Troponin I Less than 0.010 ng/mL (< 0.028)
[2019-07-27 15:12] LABS: Troponin I Less than 0.010 ng/mL (< 0.028)
--- NOTE | 2019-07-27 15:36 | NM ---
EXAM: Cardiac SPECT HISTORY: Chest pain, hypertension, diabetes mellitus PROTOCOL: Stress only, single isotope TYPE OF STRESS: Pharmacologic stress with adenosine was monitored and interpreted by Nurse wayne Slater RADIOPHARMACEUTICAL: 30 mCi technetium 99m-sestamibi injected intravenously FINDINGS: Homogeneous tracer distribution is seen in the myocardial segments on the post stress images. Gated SPECT LVEF: 53.% Wall motion exam: Normal IMPRESSION: Normal post stress myocardial perfusion scan.
[2019-07-27 16:13] VITALS: BP 120/71; TEMP 98.8
[2019-07-27 16:49] LABS: Cardiac Risk 2.7 (Less than 4.5); Magnesium 1.7 mg/dL (1.6-2.6)
[2019-07-27 17:07] LABS: Free T4 (Free Thyroxine) 1.12 ng/dL (0.70-1.48); Thyroid Stimulating Hormone 0.6206 uIU/mL (0.35-4.94)
[2019-07-27 17:24] LABS: Troponin I Less than 0.010 ng/mL (< 0.028)
--- NOTE | 2019-07-28 05:45 | DIS ---
DATE OF ADMISSION: 07/27/2019 DATE OF DISCHARGE: 07/27/2019 DISCHARGE DIAGNOSES: 1. Chest wall pain, noncardiac. 2. Diabetes mellitus, type 2. 3. Hypertension. 4. Thyroid nodule. CONSULTATIONS: None. PERTINENT LABORATORY AND X-RAY FINDINGS: Troponin I negative x3. BNP less than 10. CBC showed a white blood cell count of 13.5, hemoglobin 14, hematocrit 45, platelet count 416. Portable chest x-ray dated 07/27/2019, showed no acute cardiopulmonary process. Cardiolite stress test dated 07/27/2019, showed no evidence for reversible or fixed ischemia with calculated ejection fraction of 53%. HOSPITAL COURSE: The patient was observed on the telemetry unit after initially presenting with left-sided chest pain. The patient underwent serial cardiac biomarkers X3 negative as stated previously. The patient proceeded to exercise Cardiolite stress testing showing no evidence of reversible or fixed ischemia with calculated ejection fraction of 53%. Metabolic screening was essentially unremarkable. Telemetry monitoring showed sinus mechanism without evidence of acute arrhythmia or dysrhythmia. Vital signs remained stable and the patient is clinically stable during the entire hospital course. Thyroid function studies were pending at the time of discharge with recommendations for outpatient followup. I have examined the patient at the time of discharge and discussed followup instructions. The patient verbalized understanding and agreement, ready for discharge on 07/27/2019. DISCHARGE MEDICATIONS: 1. Enteric-coated aspirin 81 mg p.o. daily. 2. Lasix 120 mg p.o. daily. 3. Hydrochlorothiazide 25 mg p.o. daily. 4. Metformin extended release 1000 mg p.o. b.i.d. FOLLOWUP: The patient will follow up with her primary care provider, Dr. Mary Rodriguez. CONDITION ON DISCHARGE: Stable. ACTIVITY: Ad-moncho. DIET: Heart healthy and ADA. SPECIAL INSTRUCTIONS: Follow up with primary care provider for evaluation of thyroid nodule and thyroid function tests. CODE STATUS: Full. DISPOSITION: To home, 07/27/2019. Job ID: [id number]
== END 2019-07-27 17:30 | disposition home or self-care (01) ==
LOC: ERS 07:46 → 2SW 10:31
PROVIDERS: ADMIT Internal Medicine; ATTEND Internal Medicine
DX: R07.9 Chest pain, unspecified (principal); E11.9 Type 2 diabetes mellitus without complications; E04.1 Nontoxic single thyroid nodule; I10 Essential (primary) hypertension; E66.01 Morbid (severe) obesity due to excess calories; Z68.43 Body mass index [BMI] 50.0-59.9, adult; Z79.82 Long term (current) use of aspirin; Z79.84 Long term (current) use of oral hypoglycemic drugs; Z79.899 Other long term (current) drug therapy; Z88.5 Allergy status to narcotic agent
CPT/HCPCS: 36415; 36416; 78452; 80061; 83735; 84439; 84443; 84484; 93005; 93017; A9500; G0378; J0153

== ENCOUNTER 2019-07-29 10:34 | Outpatient (CLI) | payer OTHER ==
--- NOTE | 2019-07-29 11:45 | MMO ---
Bilateral MAMMO Bilat Screen [facility]. CLINICAL HISTORY: Patient is 39 years old and is seen for screening. The patient has no family history of breast cancer. The patient has no personal history of cancer. VIEWS: The views performed were: bilateral craniocaudal with tomosynthesis; bilateral mediolateral oblique; bilateral mediolateral oblique with tomosynthesis; and bilateral exaggerated craniocaudal. This study has been interpreted with the assistance of computer-aided detection. MAMMOGRAM FINDINGS: There are scattered fibroglandular densities. There are benign appearing calcifications seen in both breasts. There are no suspicious masses, suspicious calcifications, or new areas of architectural distortion. IMPRESSION: THERE IS NO MAMMOGRAPHIC EVIDENCE OF MALIGNANCY. A ROUTINE FOLLOW-UP MAMMOGRAM IN 1 YEAR IS RECOMMENDED. THE RESULTS OF THIS EXAM WERE SENT TO THE PATIENT. ACR BI-RADS Category 2 - Benign finding MAMMOGRAPHY NOTE: 1. A negative mammogram report should not delay a biopsy if a dominant of clinically suspicious mass is present. 2. Approximately 10% to 15% of breast cancers are not detected by mammography. 3. Adenosis and dense breasts may obscure an underlying neoplasm. Reported by: VIMAL AHN MD Electonically Signed: [id number]
== END 2019-07-29 10:35 | disposition home or self-care (01) ==
LOC: BICMAMMO 10:34
PROVIDERS: ATTEND Family Medicine
DX: Z12.31 Encounter for screening mammogram for malignant neoplasm of breast (principal)
CPT/HCPCS: 77063; 77067

== ENCOUNTER 2019-08-29 12:04 | Day surgery (SDC) | payer OTHER ==
[2019-08-26 10:49] VITALS: BMI 55.6
[~2019-08-29 12:04] MED LIST changes: +FLU VACC QS2019-20(6MOS UP)/PF 60 MCG/0.5 ML SYRINGE IM ONE; -PROPOFOL 200 MG/20 ML VIAL ONE
[2019-08-29] MEDS ORDERED: Sodium Bicarbonate 2.5 MEQ/5 ML VIAL ONE (13:07)
--- NOTE | 2019-08-29 14:12 | ULT ---
Sonographic guided thyroid mass FNA HISTORY:: Thyroid mass. FINDINGS: After explaining the procedure and answering all questions, the dominant nodule of the thyr oid isthmus was again visualized. Sterile technique, buffered local anesthesia, sonographic guidance, and a left anterolateral approach were used to carefully advance a 25-gauge needle into the isthmus mass. A total of 4 passes were made to obtain specimen and submitted to pathology. Postprocedure imaging shows no evidence of complication. Patient tolerated the procedure well and was dismissed in good condition. IMPRESSION: Technically successful sonographic guided FNA thyroid mass. Pathology is pending.
[2019-08-29 14:26] VITALS: BP 130/68; TEMP 98.3
== END 2019-08-29 13:12 | disposition home or self-care (01) ==
LOC: ULT 12:04
PROVIDERS: ATTEND Student in an Organized Health Care Education/Training Program
PROC: BG44ZZZ Ultrasonography of Thyroid Gland (ICD-10-PCS; principal; 2019-08-29)
PROC: 0GJK3ZZ Inspection of Thyroid Gland, Percutaneous Approach (ICD-10-PCS; principal; 2019-08-29)
DX: E04.1 Nontoxic single thyroid nodule (principal); I10 Essential (primary) hypertension; E11.9 Type 2 diabetes mellitus without complications; E66.01 Morbid (severe) obesity due to excess calories; Z68.43 Body mass index [BMI] 50.0-59.9, adult; Z79.82 Long term (current) use of aspirin; Z79.84 Long term (current) use of oral hypoglycemic drugs; Z79.899 Other long term (current) drug therapy; Z88.5 Allergy status to narcotic agent; Z88.8 Allergy status to other drugs, medicaments and biological substances
CPT/HCPCS: 60100; 76942; 88173

== ENCOUNTER 2020-07-15 14:36 | Observation (INO) | payer OTHER ==
[2020-07-15] MEDS ORDERED: Acetaminophen 325 MG TAB PO PRN ×2 (20:30→21:07)
[2020-07-15] MEDS ORDERED: Sodium Chloride 0.9% 500 ML IVPB SCH (20:30)
[2020-07-15] MEDS ORDERED: Dextrose 50% Abboject 50 ML SYRINGE SLOW IVP PRN (21:07)
[2020-07-15] MEDS ORDERED: Dextrose 5% in Water 1,000 ML IV PRN (21:07)
[2020-07-15] MEDS ORDERED: HYDROcodone/Acetaminophen 5/325 mg Tablet PO PRN ×2 (21:07)
[2020-07-15] MEDS ORDERED: Ondansetron PF 4 MG/2 ML Vial IVP PRN (21:09)
[2020-07-15] MEDS ORDERED: Calcium Carbonate 500 MG ChewTAB PO PRN (21:09)
[2020-07-15] MEDS ORDERED: Ondansetron ODT 4 MG TAB PO PRN (21:09)
[2020-07-15] MEDS ORDERED: HumaLOG 300 UNITS/3 ML VIAL SC PRN (21:09)
[2020-07-15] MEDS ORDERED: Guaifenesin DM 100-10/5 ML UDCUP PO PRN (21:09)
--- NOTE | 2020-07-15 21:15 | PDOC.HHP ---
Hospitalist HPI - History of Present Illness chest pain / covid 19 History of Present Illness: Case of an 60y/o female with pmhx of DM morbid obesity and htn who comes to hospital due to chest pain and dyspnea. patient states she was on her usual state of health until 5 days ago when she started with general malaise and cough. patient was tested for covid 4 days ago and it was positive. since them symptoms have kept progressing, the cough has worsening is non productive patient also reports fever chill diarrhea abdominal pain and changes in the sense of smell. patient with complains of chest pain for the last couple of days, pain described as sternal no radiating of crushing quality 8/10 of intensity which is worsen when she cough and with deep inspiration, patient also complains of recent onset of dyspnea of 1 day of duration. Hospitalist ROS - Review of Systems All other systems reviewed; all pertinent +/- noted in HPI/Subj - Medication Medications: Active Medications Generic Name Dose Route Start Last Admin Trade Name Freq PRN Reason Stop Dose Admin Acetaminophen 650 mg 07/15/20 20:30 07/15/20 21:09 Acetaminophen 325 Mg Tab PO 07/16/20 02:35 650 mg Q4H PRN Administration Headache/Fever or Pain Sodium Chloride 500 mls @ 0 mls/hr 07/15/20 20:30 07/15/20 21:10 Normal Saline 0.9% IVPB 07/15/20 22:30 500 mls NOW HINA Administration As Directed Sodium Chloride 10 ml 07/15/20 20:30 07/15/20 21:10 Flush - Normal Saline 10 Ml Syringe IVF 10 ml PRN PRN Administration Saline Flush Hospitalist History - Past Surgical History Past Surgical History: reports: Cholecystectomy, Tubal Ligation - Family History Family History: reports: diabetes mellitus - Social History Smoking Status: Never smoker Alcohol: reports: None Drugs: reports: none Living Situation: With Family - Exam General Appearance: NAD, awake alert, ill appearing Eye: PERRL, anicteric sclera ENT: normocephalic atraumatic, no oropharyngeal lesions, moist mucosa Neck: supple, symmetric, no JVD, no thyromegaly Heart: RRR, no murmur, no gallops, no rubs Respiratory: CTAB, no wheezes, no rales, no ronchi, normal chest expansion, tachypneic Gastrointestinal: soft, non-tender, non-distended, normal bowel sounds Extremities: no cyanosis, no clubbing, no edema Skin: normal turgor, no lesions, no rashes Neurological: cranial nerve grossly intact, normal sensation to touch, no weakness Musculoskeletal: normal tone, normal strength, no muscle wasting Psychiatric: normal affect, normal behavior, A&O x 3 Hospitalist H&P A/P - Problem (1) Pneumonia due to COVID-19 virus Code(s): U07.1 - COVID-19; J12.89 - OTHER VIRAL PNEUMONIA Status: Acute (2) Chest pain Code(s): R07.9 - CHEST PAIN, UNSPECIFIED Status: Acute (3) Diabetes type 2, controlled Code(s): E11.9 - TYPE 2 DIABETES MELLITUS WITHOUT COMPLICATIONS Status: Chronic (4) Hypertension Code(s): I10 - ESSENTIAL (PRIMARY) HYPERTENSION Status: Chronic Qualifiers: Hypertension type: essential hypertension Qualified Code(s): I10 - Essential (primary) hypertension (5) Morbid obesity with BMI of 50.0-59.9, adult Code(s): E66.01 - MORBID (SEVERE) OBESITY DUE TO EXCESS CALORIES; Z68.43 - BODY MASS INDEX [BMI] 50.0-59.9, ADULT Status: Chronic - Plan Plan: case of an 40y/o female with the stated pmhx who present with covid 19 + chest pain covid 19 pneumonia - tested positive 4 days ago - chest ct consistent with extensive infiltrates covid 19 pattern - cta not suspecious for PE - prophylatically covered with rocephin + azithromycin - decadron 6mg ivd - f/u inflammation markers - dvt prophylaxis - 02 supplementation chest pain - atypical, likely pleuritic secondary to extensive pneumonia - intial troponin negative, will continue to trend - asa 81mg pod -ekg w/o ischemic st changes dm acc + ss htn - b/p borderline low, normal LA, will hold medication for now until patient is more stable
[2020-07-15] MEDS ORDERED: cefTRIAXone\\ROCEPHIN 1 GM in Sodium Chloride 0.9% 100 ML IVPB SCH (22:00)
[2020-07-15] MEDS ORDERED: Azithromycin 500 MG in Sodium Chloride 0.9% 250 ML 250 ML IVPB SCH (22:00)
[2020-07-16] MEDS: Sodium Chloride 0.9% 1,000 ML IV SCH ×2 (00:47→17:15)
[2020-07-16 01:48] VITALS: BMI 52.2
[2020-07-16] MEDS ORDERED: Enoxaparin Sodium 60 MG/0.6 ML SYRINGE SC SCH (02:00)
[2020-07-16 05:33] LABS: ALT (SGPT) 37 U/L (8-55); AST (SGOT) 31 U/L (5-34); Albumin 3.1 g/dL (3.5-5.0); Alkaline Phosphatase 85 U/L (40-110); Anion Gap 13 mmol/L (10-20); BUN (Urea Nitrogen) 9 mg/dL (7.0-18.7); Bilirubin, Total Less than 0.2 mg/dL (0.2-1.2); CRP (Inflammatory) 5.63 mg/dL (= or < 0.5); Calc. Creatinine Clearance 191 mL/min (70-130); Carbon Dioxide 22 mmol/L (22-29); Chloride 106 mmol/L (98-107); Estimated GFR-MDRD Greater than 90; Globulin 3.5 g/dL (2.4-3.5); Glucose 190 mg/dL (70-105); Potassium 3.6 mmol/L (3.5-5.1); Protein, Total 6.6 g/dL (6.0-8.3); Sodium 137 mmol/L (136-145)
[2020-07-16 05:58] LABS: Band 3 % (5-11); Hemoglobin 13.3 g/dL (12.0-16.0); Lymphocytes 43 % (21-51); MDiff Complete? YES; Mean Corpuscular HGB CONC 31.5 g/dL (32.0-36.0); Mean Corpuscular Volume 92.1 fL (78.0-98.0); Mean Platelet Volume 7.6 fL (7.4-10.4); Monocytes 7 % (0-10); Neutrophil 47 % (42-75); Platelet Count 279 thou/uL (130-400); RBC Distribution Width 11.3 % (11.5-14.5); Red Blood Cell (RBC) Count 4.58 mill/uL (4.20-5.40); White Blood Cell (WBC) Count 7.5 thou/uL (4.8-10.8)
[2020-07-16] MEDS ORDERED: Aspirin 81 mg Enteric Coated Tablet PO SCH (09:00)
[2020-07-16] MEDS ORDERED: Dexamethasone 6 MG in Sodium Chloride 0.9% 50 ML IVPB SCH (09:00)
[2020-07-16] MEDS ORDERED: Enoxaparin Sodium 40 MG/0.4 ML SYRINGE SC SCH (09:00)
[2020-07-16] MEDS ORDERED: Dexamethasone 4 mg/ml Vial SLOW IVP SCH (09:30)
--- NOTE | 2020-07-16 09:35 | PDOC.HOSPP ---
- Subjective Encounter Date: 07/16/20 Encounter Time: 09:33 Subjective: pleuritic chest painimproveed, no sob - Objective Vital Signs & Weight: Vital Signs (12 hours) Temp Pulse Resp BP BP Pulse Ox 07/16/20 04:40 99.1 F 104 H 19 127/72 95 07/16/20 00:30 99.7 F H 97 18 99/52 L 94 L Weight Weight 267 lb 4 oz I&O: 07/15/20 07/16/20 07/17/20 06:59 06:59 06:59 Intake Total 1380 Output Total 390 Balance 990 Result Diagrams: 07/16/20 04:36 07/16/20 04:36 Additional Labs: Accuchecks 07/15/20 22:39 POC Glucose 163 H Hospitalist ROS - Medication Medications: Active Medications Generic Name Dose Route Start Last Admin Trade Name Freq PRN Reason Stop Dose Admin Acetaminophen 650 mg 07/15/20 21:07 07/16/20 04:39 Acetaminophen 325 Mg Tab PO 650 mg Q4H PRN Administration Headache/Fever/Mild Pain (1-3) Hydrocodone Bitart/Acetaminophen 1 tab 07/15/20 21:07 07/16/20 02:07 Hydrocodone/Acetaminophen 5/325 Mg Tablet PO 1 tab Q4H PRN Administration Moderate Pain (4-6) Ceftriaxone Sodium 1 gm/ 100 mls @ 200 mls/hr 07/15/20 22:00 07/16/20 00:48 Sodium Chloride IVPB 100 mls 2200 HINA Administration Azithromycin 500 mg/ Sodium 250 mls @ 250 mls/hr 07/15/20 22:00 07/16/20 00:48 Chloride IVPB 250 mls 2200 HINA Administration Sodium Chloride 1,000 mls @ 70 mls/hr 07/15/20 21:15 07/16/20 00:47 Normal Saline 0.9% IV 07/16/20 23:59 1,000 mls .[id number] HINA Administration Insulin Human Lispro 0 units 07/15/20 21:09 07/16/20 06:31 Humalog 300 Units/3 Ml Vial SC 2 unit .MILD SLIDING SCALE PRN Administration Mild Correctional Scale Sodium Chloride 10 ml 07/15/20 20:30 07/15/20 21:10 Flush - Normal Saline 10 Ml Syringe IVF 10 ml PRN PRN Administration Saline Flush - Exam General Appearance: awake alert Neck: no JVD Heart: RRR, no murmur Respiratory - other findings: good BS, mild diffuse rales Gastrointestinal: soft, non-distended, normal bowel sounds Extremities: no edema Hosp A/P (1) Chest pain Code(s): R07.9 - CHEST PAIN, UNSPECIFIED Status: Acute Qualifiers: Chest pain type: chest pain on breathing Qualified Code(s): R07.1 - Chest pain on breathing; R07.81 - Pleurodynia (2) Pneumonia due to COVID-19 virus Code(s): U07.1 - COVID-19; J12.89 - OTHER VIRAL PNEUMONIA Status: Acute (3) Diabetes type 2, controlled Code(s): E11.9 - TYPE 2 DIABETES MELLITUS WITHOUT COMPLICATIONS Status: Chronic Qualifiers: Diabetes mellitus residential insulin use: without residential use Diabetes mellitus complication status: without complication Qualified Code(s): E11.9 - Type 2 diabetes mellitus without complications (4) Hypertension Code(s): I10 - ESSENTIAL (PRIMARY) HYPERTENSION Status: Chronic Qualifiers: Hypertension type: essential hypertension Qualified Code(s): I10 - Essential (primary) hypertension - Plan on decadron discussed with ID check activity oximetry Fu
[2020-07-16 12:04] VITALS: TEMP 98.9
[2020-07-16 13:41] VITALS: BP 111/76
--- NOTE | 2020-07-16 14:52 | DIS ---
DATE OF ADMISSION: 07/15/2020 DATE OF DISCHARGE: 07/16/2020 PRIMARY CARE PROVIDER: Anupama Gregory MD FINAL DIAGNOSES: COVID pneumonia, pleuritic chest pain, diabetes mellitus type 2, hypertension. DISCHARGE MEDICATIONS: 1. Dexamethasone 8 mg p.o. daily for 9 days. 2. Aspirin 81 mg a day. 3. Losartan 25 mg a day. 4. Metformin 1000 mg twice a day. ALLERGIES: TO LISINOPRIL AND TRAMADOL. CODE STATUS: Full. PENDING AT TIME OF DISCHARGE: Nothing. DIET: Diabetic. CONSULTATIONS: None. PROCEDURES: None. HOSPITAL COURSE: The patient admitted to the hospital through the emergency room to the Hospitalist Service. She had been transferred from [facility]. She had chest pain. She had a positive COVID test 4 days ago. She had a cough. Her chest pain is actually pleuritic and is dramatically relieved since her first dose of Decadron. She was admitted primarily for chest pain. Troponins were normal x3. CBC was normal. Comprehensive metabolic profile showed a blood sugar of 150. Ferritin was normal at 234. CRP was actually elevated at 5.6. The patient's cardiorespiratory exam is normal. Vital signs are stable. O2 saturation is running 95 at rest, she does not desaturate with exercise. This was documented by walking in the [place] with an oximeter. She has been told to return to the hospital for any future adverse development. Isolation and quarantine have been explained to her. Use of mask has been explained to her. Not sleeping in the same room as others has been explained to her. She has been asked to follow up with her PCP in 3 to 7 days. Job ID: [id number]
[2020-07-17] MEDS ORDERED: Dexamethasone 4 mg/ml Vial SLOW IVP SCH (09:00)
== END 2020-07-16 18:19 | disposition home or self-care (01) ==
LOC: 2SW 14:36
PROVIDERS: ADMIT Internal Medicine; ATTEND Internal Medicine
DX: U07.1 COVID-19 (principal); J12.89 Other viral pneumonia; E11.9 Type 2 diabetes mellitus without complications; I10 Essential (primary) hypertension; E66.01 Morbid (severe) obesity due to excess calories; Z68.43 Body mass index [BMI] 50.0-59.9, adult; Z79.82 Long term (current) use of aspirin; Z79.84 Long term (current) use of oral hypoglycemic drugs; Z79.899 Other long term (current) drug therapy; Z88.5 Allergy status to narcotic agent
CPT/HCPCS: 36415; 36416; 80053; 82728; 84145; 85007; 85027; 86140; 96365; 96368; 96372; 96375; G0378; J0456; J0696; J1100; J1650; J3490; J7030; J7050

== ENCOUNTER 2020-07-19 10:45 | Inpatient (IN) | payer OTHER ==
[2020-07-19] MEDS ORDERED: Enoxaparin Sodium 120 MG/0.8 ML SYRINGE SC SCH (12:00)
[2020-07-19 12:42] LABS: Troponin I 0.012 ng/mL (< 0.028)
[2020-07-19] MEDS ORDERED: Acetaminophen 325 MG TAB PO PRN (13:49)
[2020-07-19] MEDS ORDERED: Dextrose 50% Abboject 50 ML SYRINGE SLOW IVP PRN (13:54)
[2020-07-19] MEDS ORDERED: Dextrose 5% in Water 1,000 ML IV PRN (13:54)
[2020-07-19 13:56] VITALS: BMI 53.6
--- NOTE | 2020-07-19 14:01 | PDOC.HHP ---
Hospitalist HPI - History of Present Illness SOB and worsening cough History of Present Illness: 40 YO F with a hypothyroidism, DM and recent COVID diagnosis treated as an outpt who re-presented to the ER with c/o of worsening SOB an cough. Pt had originally presented in the ER last week and was diagnosed with COVID. She was given abx and steroids and dc home. She presented due to worsening symptoms. She also experienced fever, night sweats, nausea and diaries. Due to worsening SOB, she presented to the hospital where she was noted to be hypoxic 88% on RA. She was therefore admitted for further mgt. Hospitalist ROS - Review of Systems Constitutional: reports: fever, chills, sweats, weakness Respiratory: reports: cough, shortness of breath Gastrointestinal: reports: nausea, vomiting, diarrhea Hospitalist History - Past Medical History Cardiac: reports: HTN Endocrine: reports: Diabetes, Hyperthyroidism - Past Surgical History Past Surgical History: reports: Cholecystectomy, Tubal Ligation - Social History Smoking Status: Never smoker Alcohol: reports: None Drugs: reports: none Domestic Violence: Negative Activity level: independent ambulation - Exam General Appearance: NAD, awake alert Eye: PERRL, anicteric sclera ENT: normocephalic atraumatic, no oropharyngeal lesions Neck: supple, symmetric, no thyromegaly, no lymphadenopathy Heart: RRR, no murmur, no gallops, no rubs, normal peripheral pulses Respiratory: CTAB, no wheezes, no rales, no ronchi, normal chest expansion Gastrointestinal: soft, non-tender, non-distended, normal bowel sounds Extremities: no clubbing, no edema Neurological: cranial nerve grossly intact, no focal deficits Musculoskeletal: normal strength Psychiatric: normal affect, normal behavior, A&O x 3, oriented to place Hospitalist Results - Labs Lab results: Troponin I 0.012 ng/mL (< 0.028) 07/19/20 12:08 Hospitalist H&P A/P - Problem (1) Pneumonia due to COVID-19 virus Code(s): U07.1 - COVID-19; J12.89 - OTHER VIRAL PNEUMONIA Status: Acute Assessment and Plan: Restart Steroids, abx, Vit C, d and zinc. Cont O2 support. Will also order Remdesivir. (2) Diabetes type 2, controlled Code(s): E11.9 - TYPE 2 DIABETES MELLITUS WITHOUT COMPLICATIONS Status: Chronic Qualifiers: Diabetes mellitus snf insulin use: without vermin exterminator use Diabetes me llitus complication status: without complication Qualified Code(s): E11.9 - Type 2 diabetes mellitus without complications Assessment and Plan: Hold metformin due to recent contrast intake. Start Glargin, monitor BG, covered with SSI. (3) Hypertension Code(s): I10 - ESSENTIAL (PRIMARY) HYPERTENSION Status: Chronic Qualifiers: Hypertension type: essential hypertension Qualified Code(s): I10 - Essential (primary) hypertension Assessment and Plan: BP is controlled, cont current meds. Cover with IV labetalol. (4) Morbid obesity with BMI of 50.0-59.9, adult Code(s): E66.01 - MORBID (SEVERE) OBESITY DUE TO EXCESS CALORIES; Z68.43 - BODY MASS INDEX [BMI] 50.0-59.9, ADULT Status: Chronic Assessment and Plan: Will discuss about diet and exercise prior to d/c. (5) Respiratory failure Code(s): J96.90 - RESPIRATORY FAILURE, UNSP, UNSP W HYPOXIA OR HYPERCAPNIA Status: Acute Qualifiers: Chronicity: acute Respiratory failure complication: hypoxia Qualified Code(s): J96.01 - Acute respiratory failure with hypoxia Assessment and Plan: Currently on 2L of O2. Cont O2 support. Wean as tolerated. - Plan Plan: PPx: SCD and lovenox. CODE: FULL. Disposition: Admit as inpt.
[2020-07-19] MEDS: cefTRIAXone\\ROCEPHIN 1 GM in Sodium Chloride 0.9% 100 ML IVPB SCH (14:16)
[2020-07-19] MEDS: Benzonatate 100 MG CAP PO SCH ×2 (14:26→19:46)
[2020-07-19] MEDS: HumaLOG 300 UNITS/3 ML VIAL SC PRN (14:58)
[2020-07-19] MEDS ORDERED: Insulin Glargine 20 UNITS in Pre-Filled Syringe 1 EACH SC SCH ×2 (15:00→21:00)
[2020-07-19 15:42] LABS: Troponin I Less than 0.010 ng/mL (< 0.028)
[2020-07-19] MEDS ORDERED: REMDESIVIR (EUA) 200 MG in Sodium Chloride 0.9% 250 ML 210 ML IV SCH (16:00)
[2020-07-19] MEDS: HYDROcodone/Acetaminophen 5/325 mg Tablet PO PRN (19:46)
[2020-07-20] MEDS: HumaLOG 300 UNITS/3 ML VIAL SC PRN ×3 (04:34→17:29)
[2020-07-20] MEDS: guaiFENesin/Codeine Phosphate 200 mg/20 mg 10 ml UD Cup PO PRN (05:59)
[2020-07-20 06:22] LABS: Band 5 % (5-11); Hemoglobin 13.7 g/dL (12.0-16.0); Lymphocytes 20 % (21-51); MDiff Complete? YES; Mean Corpuscular HGB CONC 33.2 g/dL (32.0-36.0); Mean Corpuscular Hemoglobin 30.6 pg (27.0-31.0); Mean Corpuscular Volume 92.1 fL (78.0-98.0); Mean Platelet Volume 7.7 fL (7.4-10.4); Monocytes 3 % (0-10); Neutrophil 72 % (42-75); Platelet Count 335 thou/uL (130-400); Platelet Morphology Comment Appears Adequate; RBC Distribution Width 11.4 % (11.5-14.5); RBC Morphology Normal; Red Blood Cell (RBC) Count 4.48 mill/uL (4.20-5.40)
[2020-07-20 06:33] LABS: ALT (SGPT) 20 U/L (8-55); AST (SGOT) 11 U/L (5-34); Alkaline Phosphatase 88 U/L (40-110); Anion Gap 14 mmol/L (10-20); BUN (Urea Nitrogen) 12 mg/dL (7.0-18.7); Bilirubin, Total 0.2 mg/dL (0.2-1.2); Calc. Creatinine Clearance 188 mL/min (70-130); Calcium 8.7 mg/dL (7.8-10.44); Carbon Dioxide 25 mmol/L (22-29); Chloride 106 mmol/L (98-107); Estimated GFR-MDRD Greater than 90; Globulin 3.9 g/dL (2.4-3.5); Glucose 288 mg/dL (70-105); Protein, Total 6.9 g/dL (6.0-8.3); Sodium 141 mmol/L (136-145)
[2020-07-20] MEDS ORDERED: Losartan 25 MG TAB PO SCH (09:00)
[2020-07-20] MEDS ORDERED: Insulin Glargine 10 UNITS in Pre-Filled Syringe 1 EACH SC SCH (09:00)
[2020-07-20] MEDS ORDERED: Enoxaparin Sodium 40 MG/0.4 ML SYRINGE SC SCH (09:00)
[2020-07-20] MEDS: Dexamethasone 4 mg/ml Vial SLOW IVP SCH (09:26)
[2020-07-20] MEDS: Cholecalciferol 1,000 UNITS (25 MCG) TAB PO SCH (09:26)
[2020-07-20] MEDS: Aspirin 81 mg Enteric Coated Tablet PO SCH (09:26)
[2020-07-20] MEDS: Ascorbic Acid 500 mg Chewable Tablet PO SCH (09:26)
[2020-07-20] MEDS: Zinc Sulfate 220 MG CAP PO SCH (09:26)
[2020-07-20] MEDS: Benzonatate 100 MG CAP PO SCH ×3 (09:26→20:00)
[2020-07-20] MEDS: cefTRIAXone\\ROCEPHIN 1 GM in Sodium Chloride 0.9% 100 ML IVPB SCH (14:55)
[2020-07-20] MEDS: REMDESIVIR (EUA) 100 MG in Sodium Chloride 0.9% 250 ML 230 ML IV SCH (16:44)
--- NOTE | 2020-07-20 17:19 | PDOC.HOSPP ---
- Subjective Encounter Date: 07/20/20 Encounter Time: 11:00 Subjective: Patient seen and examined for respiratory failure due to COVID-19 pneumonia. Shortness of breath improving. Cough which is essentially nonproductive. Denies any chest pain, nausea or palpitations - Objective Vital Signs & Weight: Vital Signs (12 hours) Temp Pulse Resp BP BP Pulse Ox 07/20/20 12:00 98.3 F 70 18 102/70 95 07/20/20 08:00 98.5 F 69 20 103/81 92 L Weight Weight 265 lb 6.4 oz I&O: 07/19/20 07/20/20 07/21/20 06:59 06:59 06:59 Intake Total 120 320 Balance 120 320 Result Diagrams: 07/20/20 05:43 07/20/20 05:43 Additional Labs: Accuchecks 07/20/20 07/20/20 07/20/20 16:50 11:39 04:37 POC Glucose 386 H 300 H 256 H 07/19/20 19:51 POC Glucose 358 H Abnormal Lab Results - Last 48 hrs 07/20/20 05:43: Albumin 3.0 L, Globulin 3.9 H, Albumin/Globulin Ratio 0.8 L 07/20/20 05:43: WBC 12.0 H, RDW 11.4 L, Lymphocytes % (Manual) 20 L Radiology Reviewed by me: Yes (CTA - worsening COVID pneumonia) Hospitalist ROS - Review of Systems Cardiovascular: denies: chest pain, palpitations, orthopnea, paroxysmal noc. dys pnea, edema, light headedness, other Gastrointestinal: denies: nausea, vomiting, abdominal pain, diarrhea, constipation, melena, hematochezia, other All other systems reviewed; all pertinent +/- noted in HPI/Subj - Medication Medications: Active Medications Generic Name Dose Route Start Last Admin Trade Name Freq PRN Reason Stop Dose Admin Hydrocodone Bitart/Acetaminophen 1 tab 07/19/20 13:49 07/19/20 19:46 Hydrocodone/Acetaminophen 5/325 Mg Tablet PO 1 tab Q4H PRN Administration Moderate Pain (4-6) Ascorbic Acid 1,000 mg 07/20/20 09:00 07/20/20 09:26 Ascorbic Acid 500 Mg Chewable Tablet PO 1,000 mg DAILY HINA Administration Aspirin 81 mg 07/20/20 09:00 07/20/20 09:26 Aspirin 81 Mg Enteric Coated Tablet PO 81 mg DAILY HINA Administration Benzonatate 100 mg 07/19/20 15:00 07/20/20 15:07 Benzonatate 100 Mg Cap PO 100 mg TID HINA Administration Cholecalciferol 2,000 units 07/20/20 09:00 07/20/20 09:26 Cholecalciferol 1,000 Units (25 Mcg) Tab PO 2,000 units DAILY HINA Administration Dexamethasone 6 mg 07/20/20 09:00 07/20/20 09:26 Dexamethasone 4 Mg/Ml Vial SLOW IVP 6 mg DAILY HINA Administration Guaifenesin/Codeine Phosphate 10 ml 07/19/20 13:55 07/20/20 05:59 Guaifenesin/Codeine Phosphate 200 Mg/20 Mg 10 Ml Ud Cup PO 10 ml Q6H PRN Administration Cough Insulin Glargine 20 units/ 0.2 mls @ 0 mls/hr 07/19/20 21:00 07/19/20 19:47 Miscellaneous Medication SC Not Given HS [facility] Ceftriaxone Sodium 1 gm/ 100 mls @ 200 mls/hr 07/19/20 14:00 07/20/20 14:55 Sodium Chloride IVPB 100 mls Q24HR HINA Administration Remdesivir 100 mg/ Sodium 250 mls @ 250 mls/hr 07/20/20 16:00 07/20/20 16:44 Chloride IV 07/23/20 16:59 250 mls 1600 HINA Administration Insulin Glargine 10 units/ 0.1 mls @ 0 mls/hr 07/20/20 09:00 07/20/20 09:27 Miscellaneous Medication SC 0.1 mls QAM HINA Administration Insulin Human Lispro 0 units 07/19/20 13:54 07/20/20 12:50 Humalog 300 Units/3 Ml Vial SC 8 unit .MODERATE SLIDING SC PRN Administration Moderate Correctional Scale Losartan Potassium 25 mg 07/20/20 09:00 07/20/20 11:56 Losartan 25 Mg Tab PO Not Given DAILY HINA Zinc Sulfate 220 mg 07/20/20 09:00 07/20/20 09:26 Zinc Sulfate 220 Mg Cap PO 220 mg DAILY HINA Administration - Exam General Appearance: ill appearing Neck: supple, no JVD Heart: RRR, no gallops, no rubs, normal peripheral pulses Respiratory: no wheezes, normal chest expansion, rales, rhonchi Gastrointestinal: soft, non-tender, non-distended, normal bowel sounds Extremities: no cyanosis, no clubbing, no edema Neurological: no new deficit Psychiatric: normal affect, A&O x 3 Hosp A/P - Plan DVT proph w/lovenox Acute hypoxic respiratory failure due to COVID-19 pneumonia Diabetes mellitus type 2 uncontrolled due to steroids Hypertension Morbid obesity with a BMI 53.6 JADIEL inhibitor/tramadol allergy Plan: Continue close monitoring. Continue dexamethasone 6 mg daily along with remdesivirday 2. Increase Lantus to 30 units nightly due to hyperglycemia. Continue vitamin C, zinc. Add mucolytic's. Monitor inflammatory markers. Patient was advised to ambulate. Increase Lovenox to 40 mg twice daily. Continue losartan with holding parameters. Patient will probably require oxygen at discharge.
--- NOTE | 2020-07-20 17:22 | CON ---
DATE OF CONSULTATION: 07/20/20 REASON FOR CONSULT: COVID pneumonia. HISTORY OF PRESENT ILLNESS: A 40-year-old who was recently admitted for COVID pneumonia. She has been symptomatic since the 18th, today the 8th or 9th day of symptoms, almost 10th. She has a history of obesity, type 2 diabetes, and hypertension. She was recently discharged on Decadron for another nine days, 8 mg. She did not have O2 supplementation at home and became symptomatic again and came back to the hospital. At the emergency room, she had BP 114/73, pulse 90, respirations 37, temperature 99.4, and O2 sats 100 on 2 L. The exam showed tachypnea. Otherwise, she was oriented, speaking in full sentences. Lungs sounds were clear. Heart exam normal. Abdomen normal. Initial findings included white cell count 12,000, hemoglobin 13, and platelets 335; albumin 3.0, creatinine normal, and glucose 300. Her SARS-CoV positivity is from outside the hospital. It is not documented here. She had a chest CTA done about 4 days ago at the initial admission for this diagnosis and it showed scattered ground-glass opacities, a little bit less prominent as they are now. Denies any headaches. No sore throat. No back pain. No sputum production or hemoptysis. No abdominal pain. Notes some diarrhea. No genitourinary symptoms. No joint symptoms. Some anosmia. No neurological symptoms. PAST MEDICAL HISTORY: Type 2 diabetes, obesity, hypertension, and thyroid nodule. PAST SURGICAL HISTORY: Tubal ligation; fracture, ankle, ORIF; and cholecystectomy. MEDICATIONS: 1. Metformin. 2. Lasix. 3. Aspirin. 4. Antihypertensives. 5. Currently on Remdesivir and Decadron. ALLERGIES: LISINOPRIL AND TRAMADOL. FAMILY HISTORY: Type 2 diabetes and lung cancer. SOCIAL HISTORY: Lives in [place]. Works as a [employer]. Never smoker. Drinks occasionally. Three children. PHYSICAL EXAMINATION: VITAL SIGNS: She has been afebrile since admission, O2 saturations are 95 on 2 L nasal cannula, heart rate 70, and respiratory rate 18. GENERAL: Does not appear in distress. Oriented. Pleasant. SKIN: Normal. Peripheral IV access. Voiding in the toilet. LYMPHATICS: No lymphadenopathy. HEENT: Unremarkable. Teeth in good shape. LUNGS: With clear breath sounds. No wheezing or crackles. HEART: S1, S2. Regular rate. ABDOMEN: Soft. Not distended or tender. No ascites. No bladder distention. EXTREMITIES: Moves extremities equally. LABORATORIES: Have been reviewed. ASSESSMENT: Moderate COVID pneumonia with readmission because of worsening symptoms. She is saturating well with 2 L nasal cannula and we will continue on Decadron 6 mg, Remdesivir, and prophylactic enoxaparin. Monitor daily markers. Hopefully, will have an uneventful course and be able to be discharged soon. Job ID: [id number] [facility]
[2020-07-20] MEDS: HYDROcodone/Acetaminophen 5/325 mg Tablet PO PRN (19:37)
[2020-07-20] MEDS ORDERED: Albuterol 200 PUFF (6.7GM INHALER) INH PRN (19:56)
[2020-07-20] MEDS: Enoxaparin Sodium 40 MG/0.4 ML SYRINGE SC SCH (20:00)
[2020-07-20] MEDS: guaiFENesin ER 600 MG TAB PO SCH (20:00)
[2020-07-20] MEDS: Insulin Glargine 30 UNITS in Pre-Filled Syringe 1 EACH SC SCH (20:00)
[2020-07-20] MEDS: Albuterol 200 PUFF (6.7GM INHALER) INH SCH (22:18)
[2020-07-21] MEDS: Diabetic Tussin 200 MG/10 ML UDCUP PO PRN ×2 (00:51→20:00)
[2020-07-21] MEDS: Albuterol 200 PUFF (6.7GM INHALER) INH SCH ×6 (03:14→22:52)
[2020-07-21 06:22] LABS: #Lymphocytes 2.1 thou/uL (1.20-3.40); #Monocytes 0.8 thou/uL (0.11-0.59); #Neutrophils 5.5 thou/uL (1.40-6.50); %Basophils 0.3 % (0.0-1.0); %Lymphocytes 24.9 % (21.0-51.0); %Monocytes 9.6 % (0.0-10.0); %Neutrophils 65.1 % (42.0-75.0); Hemoglobin 14.6 g/dL (12.0-16.0); Mean Corpuscular HGB CONC 32.4 g/dL (32.0-36.0); Mean Corpuscular Hemoglobin 30.4 pg (27.0-31.0); Mean Corpuscular Volume 93.6 fL (78.0-98.0); Mean Platelet Volume 7.8 fL (7.4-10.4); Platelet Count 369 thou/uL (130-400); RBC Distribution Width 11.3 % (11.5-14.5); White Blood Cell (WBC) Count 8.5 thou/uL (4.8-10.8)
[2020-07-21 06:42] LABS: Phosphorus 3.5 mg/dL (2.3-4.7)
[2020-07-21 06:47] LABS: ALT (SGPT) 21 U/L (8-55); AST (SGOT) 14 U/L (5-34); Albumin 3.3 g/dL (3.5-5.0); Alkaline Phosphatase 86 U/L (40-110); Bilirubin, Direct 0.1 mg/dL (0.1-0.3); Bilirubin, Total 0.2 mg/dL (0.2-1.2); Protein, Total 7.4 g/dL (6.0-8.3)
[2020-07-21 06:53] LABS: ALT (SGPT) 21 U/L (8-55); AST (SGOT) 13 U/L (5-34); Albumin 3.3 g/dL (3.5-5.0); Alkaline Phosphatase 87 U/L (40-110); BUN (Urea Nitrogen) 17 mg/dL (7.0-18.7); Bilirubin, Total 0.2 mg/dL (0.2-1.2); CRP (Inflammatory) 9.34 mg/dL (= or < 0.5); Calc. Creatinine Clearance 176 mL/min (70-130); Calcium 9.1 mg/dL (7.8-10.44); Carbon Dioxide 28 mmol/L (22-29); Estimated GFR-MDRD Greater than 90; Globulin 4.1 g/dL (2.4-3.5); Glucose 259 mg/dL (70-105); Protein, Total 7.4 g/dL (6.0-8.3)
[2020-07-21 07:02] LABS: Anion Gap 15 mmol/L (10-20); Chloride 103 mmol/L (98-107); Sodium 141 mmol/L (136-145)
[2020-07-21] MEDS: Cholecalciferol 1,000 UNITS (25 MCG) TAB PO SCH (09:04)
[2020-07-21] MEDS: Aspirin 81 mg Enteric Coated Tablet PO SCH (09:04)
[2020-07-21] MEDS: Benzonatate 100 MG CAP PO SCH ×3 (09:05→20:00)
[2020-07-21] MEDS: Ascorbic Acid 500 mg Chewable Tablet PO SCH (09:05)
[2020-07-21] MEDS: guaiFENesin ER 600 MG TAB PO SCH ×2 (09:05→20:01)
[2020-07-21] MEDS: Zinc Sulfate 220 MG CAP PO SCH (09:05)
[2020-07-21] MEDS: Losartan 25 MG TAB PO SCH (09:06)
[2020-07-21] MEDS: Dexamethasone 4 mg/ml Vial SLOW IVP SCH (09:06)
[2020-07-21] MEDS: Enoxaparin Sodium 40 MG/0.4 ML SYRINGE SC SCH ×2 (09:06→20:01)
[2020-07-21] MEDS: HumaLOG 300 UNITS/3 ML VIAL SC PRN ×3 (11:19→20:02)
--- NOTE | 2020-07-21 12:05 | PDOC.HOSPP ---
- Subjective Encounter Date: 07/21/20 Encounter Time: 11:00 Subjective: Patient seen and examined for COVID-19 pneumonia with respiratory failure. More short of breath this morning. Continues to have cough with minimal production. Denies any fever, chest pain, nausea or vomiting. - Objective Vital Signs & Weight: Vital Signs (12 hours) Temp Pulse Resp BP BP Pulse Ox 07/21/20 07:53 98.8 F 71 20 111/56 L 97 07/21/20 04:15 98.7 F 63 18 103/67 96 07/21/20 00:30 97.8 F 73 18 93/66 95 Weight Weight 265 lb 6.4 oz I&O: 07/20/20 07/21/20 07/22/20 06:59 06:59 06:59 Intake Total 120 560 Balance 120 560 Result Diagrams: 07/21/20 05:53 07/21/20 05:53 Additional Labs: Accuchecks 07/21/20 07/21/20 07/20/20 11:06 04:28 20:05 POC Glucose 279 H 239 H 349 H 07/20/20 16:50 POC Glucose 386 H Abnormal Lab Results - Last 48 hrs 07/20/20 05:43: Albumin 3.0 L, Globulin 3.9 H, Albumin/Globulin Ratio 0.8 L 07/20/20 05:43: WBC 12.0 H, RDW 11.4 L, Lymphocytes % (Manual) 20 L 07/21/20 05:53: C-Reactive Protein 9.34 H, Albumin 3.3 L, Globulin 4.1 H, Albumin/Globulin Ratio 0.8 L 07/21/20 05:53: Ferritin 308.74 H 07/21/20 05:53: D-Dimer 0.89 H 07/21/20 05:53: RDW 11.3 L, Monocytes # 0.8 H 07/21/20 05:53: Albumin 3.3 L Radiology Reviewed by me: Yes (CT chestbilateral pneumonia) Hospitalist ROS - Review of Systems Cardiovascular: denies: chest pain, palpitations, orthopnea, paroxysmal noc. dyspnea, edema, light headedness, other Gastrointestinal: denies: nausea, vomiting, abdominal pain, diarrhea, constipation, melena, hematochezia, other - Medication Medications: Active Medications Generic Name Dose Route Start Last Admin Trade Name Freq PRN Reason Stop Dose Admin Hydrocodone Bitart/Acetaminophen 1 tab 07/19/20 13:49 07/20/20 19:37 Hydrocodone/Acetaminophen 5/325 Mg Tablet PO 1 tab Q4H PRN Administration Moderate Pain (4-6) Albuterol Sulfate 2 puff 07/20/20 22:30 07/21/20 06:21 Albuterol 200 Puff (6.7gm Inhaler) INH 2 puff [id number] HINA Administration Ascorbic Acid 1,000 mg 07/20/20 09:00 07/21/20 09:05 Ascorbic Acid 500 Mg Chewable Tablet PO 1,000 mg DAILY HINA Administration Aspirin 81 mg 07/20/20 09:00 07/21/20 09:04 Aspirin 81 Mg Enteric Coated Tablet PO 81 mg DAILY HINA Administration Benzonatate 100 mg 07/19/20 15:00 07/21/20 09:05 Benzonatate 100 Mg Cap PO 100 mg TID HINA Administration Cholecalciferol 2,000 units 07/20/20 09:00 07/21/20 09:04 Cholecalciferol 1,000 Units (25 Mcg) Tab PO 2,000 units DAILY HINA Administration Dexamethasone 6 mg 07/20/20 09:00 07/21/20 09:06 Dexamethasone 4 Mg/Ml Vial SLOW IVP 6 mg DAILY HINA Administration Enoxaparin Sodium 40 mg 07/20/20 21:00 07/21/20 09:06 Enoxaparin Sodium 40 Mg/0.4 Ml Syringe SC 40 mg 0900,2100 HINA Administration Guaifenesin 600 mg 07/20/20 21:00 07/21/20 09:05 Guaifenesin Er 600 Mg Tab PO 600 mg Q12HR HINA Administration Guaifenesin 200 mg 07/20/20 19:13 07/21/20 00:51 Diabetic Tussin 200 Mg/10 Ml Udcup PO 200 mg Q4H PRN Administration Cough Guaifenesin/Codeine Phosphate 10 ml 07/19/20 13:55 07/20/20 05:59 Guaifenesin/Codeine Phosphate 200 Mg/20 Mg 10 Ml Ud Cup PO 10 ml Q6H PRN Administration Cough Ceftriaxone Sodium 1 gm/ 100 mls @ 200 mls/hr 07/19/20 14:00 07/20/20 14:55 Sodium Chloride IVPB 100 mls Q24HR HINA Administration Remdesivir 100 mg/ Sodium 250 mls @ 250 mls/hr 07/20/20 16:00 07/20/20 16:44 Chloride IV 07/23/20 16:59 250 mls 1600 HINA Administration Insulin Glargine 30 units/ 0.3 mls @ 0 mls/hr 07/20/20 21:00 07/20/20 20:00 Miscellaneous Medication SC 0.3 mls HS HINA Administration Insulin Human Lispro 0 units 07/19/20 13:54 07/21/20 11:19 Humalog 300 Units/3 Ml Vial SC 6 unit .MODERATE SLIDING SC PRN Administration Moderate Correctional Scale Losartan Potassium 25 mg 07/20/20 19:14 07/21/20 09:06 Losartan 25 Mg Tab PO Not Given DAILY HINA Zinc Sulfate 220 mg 07/20/20 09:00 07/21/20 09:05 Zinc Sulfate 220 Mg Cap PO 220 mg DAILY HINA Administration - Exam General Appearance: ill appearing Neck: supple, no JVD Heart: no gallops, no rubs Respiratory: no wheezes, rales, rhonchi Gastrointestinal: soft, non-tender, non-distended, normal bowel sounds, no gua rding, no rigidity Extremities: no cyanosis, no clubbing Neurological: no new deficit Psychiatric: normal affect, A&O x 3 Hosp A/P - Plan DVT proph w/SCDs Acute hypoxic respiratory failure due to COVID-19 pneumonia Diabetes mellitus type 2 uncontrolled due to steroids Hypertension Morbid obesity with a BMI 53.6 JADIEL inhibitor/tramadol allergy Plan: Continue remdesivir/dexamethasoneday 3. Continue albuterol inhaler. Increase Lantus to 30 units nightly. Continue IV ceftriaxone. Continue aspirin, losartan and other medications as above. Monitor inflammatory markers. Recheck labs in a.m. Continue sliding scale. Infectious disease input appreciated
[2020-07-21] MEDS: cefTRIAXone\\ROCEPHIN 1 GM in Sodium Chloride 0.9% 100 ML IVPB SCH (12:55)
[2020-07-21] MEDS: REMDESIVIR (EUA) 100 MG in Sodium Chloride 0.9% 250 ML 230 ML IV SCH (16:25)
[2020-07-21] MEDS: Famotidine 20 MG TAB PO SCH (20:00)
[2020-07-21] MEDS: HYDROcodone/Acetaminophen 5/325 mg Tablet PO PRN (20:01)
[2020-07-21] MEDS: Insulin Glargine 30 UNITS in Pre-Filled Syringe 1 EACH SC SCH (20:02)
[2020-07-21] MEDS: guaiFENesin/Codeine Phosphate 200 mg/20 mg 10 ml UD Cup PO PRN (22:56)
[2020-07-22] MEDS: Albuterol 200 PUFF (6.7GM INHALER) INH SCH ×6 (02:37→22:04)
[2020-07-22] MEDS: HumaLOG 300 UNITS/3 ML VIAL SC PRN ×4 (05:31→20:10)
[2020-07-22 06:58] LABS: #Basophils 0.1 thou/uL (0.0-0.2); #Lymphocytes 3.1 thou/uL (1.20-3.40); #Neutrophils 6.6 thou/uL (1.40-6.50); %Basophils 0.8 % (0.0-1.0); %Eosinophils 0.2 % (0.0-10.0); %Monocytes 8.8 % (0.0-10.0); %Neutrophils 61.2 % (42.0-75.0); Hemoglobin 14.2 g/dL (12.0-16.0); Mean Corpuscular HGB CONC 32.4 g/dL (32.0-36.0); Mean Corpuscular Hemoglobin 29.9 pg (27.0-31.0); Mean Corpuscular Volume 92.3 fL (78.0-98.0); Mean Platelet Volume 7.5 fL (7.4-10.4); Platelet Count 396 thou/uL (130-400); RBC Distribution Width 11.3 % (11.5-14.5); Red Blood Cell (RBC) Count 4.74 mill/uL (4.20-5.40); White Blood Cell (WBC) Count 10.8 thou/uL (4.8-10.8)
[2020-07-22 07:20] LABS: ALT (SGPT) 28 U/L (8-55); AST (SGOT) 25 U/L (5-34); Albumin 3.1 g/dL (3.5-5.0); Alkaline Phosphatase 85 U/L (40-110); Anion Gap 14 mmol/L (10-20); BUN (Urea Nitrogen) 16 mg/dL (7.0-18.7); Bilirubin, Total 0.2 mg/dL (0.2-1.2); CRP (Inflammatory) 3.91 mg/dL (= or < 0.5); Calc. Creatinine Clearance 204 mL/min (70-130); Calcium 8.8 mg/dL (7.8-10.44); Carbon Dioxide 24 mmol/L (22-29); Chloride 103 mmol/L (98-107); Estimated GFR-MDRD Greater than 90; Globulin 3.9 g/dL (2.4-3.5); Glucose 261 mg/dL (70-105); Sodium 137 mmol/L (136-145)
[2020-07-22] MEDS: Benzonatate 100 MG CAP PO SCH ×3 (07:59→19:59)
[2020-07-22] MEDS: Aspirin 81 mg Enteric Coated Tablet PO SCH (08:00)
[2020-07-22] MEDS: Famotidine 20 MG TAB PO SCH ×2 (08:00→19:59)
[2020-07-22] MEDS: guaiFENesin ER 600 MG TAB PO SCH ×2 (08:00→19:59)
[2020-07-22] MEDS: Ascorbic Acid 500 mg Chewable Tablet PO SCH (08:00)
[2020-07-22] MEDS: Zinc Sulfate 220 MG CAP PO SCH (08:00)
[2020-07-22] MEDS: Cholecalciferol 1,000 UNITS (25 MCG) TAB PO SCH (08:00)
[2020-07-22] MEDS: Losartan 25 MG TAB PO SCH ×2 (08:00→08:44)
[2020-07-22] MEDS: Dexamethasone 4 mg/ml Vial SLOW IVP SCH (08:00)
[2020-07-22] MEDS: Enoxaparin Sodium 40 MG/0.4 ML SYRINGE SC SCH ×2 (08:01→19:59)
[2020-07-22] MEDS: cefTRIAXone\\ROCEPHIN 1 GM in Sodium Chloride 0.9% 100 ML IVPB SCH (14:05)
[2020-07-22] MEDS: REMDESIVIR (EUA) 100 MG in Sodium Chloride 0.9% 250 ML 230 ML IV SCH (15:38)
--- NOTE | 2020-07-22 15:58 | PDOC.HOSPP ---
- Subjective Encounter Date: 07/22/20 Encounter Time: 12:00 Subjective: Patient seen and examined for respiratory failure due to COVID-19 pneumonia. Denies any new complaints. Shortness of breath slowly improving. Some cough essentially nonproductive. Denies any fever, chest pain, nausea or diarrhea. - Objective Vital Signs & Weight: Vital Signs (12 hours) Temp Pulse Resp BP BP Pulse Ox 07/22/20 12:00 68 20 97 07/22/20 08:00 98.3 F 66 18 92/58 L 96 07/22/20 04:00 98.2 F 65 18 103/56 L 99 Weight Weight 265 lb 6.4 oz I&O: 07/21/20 07/22/20 07/23/20 06:59 06:59 06:59 Intake Total 560 Balance 560 Result Diagrams: 07/22/20 06:45 07/22/20 06:45 Additional Labs: Accuchecks 07/22/20 07/22/20 07/22/20 15:44 10:45 04:29 POC Glucose 489 H 364 H 273 H 07/21/20 07/21/20 20:09 16:31 POC Glucose 342 H 401 H Abnormal Lab Results - Last 48 hrs 07/21/20 05:53: C-Reactive Protein 9.34 H, Albumin 3.3 L, Globulin 4.1 H, Albumin/Globulin Ratio 0.8 L 07/21/20 05:53: Ferritin 308.74 H 07/21/20 05:53: D-Dimer 0.89 H 07/21/20 05:53: RDW 11.3 L, Monocytes # 0.8 H 07/21/20 05:53: Albumin 3.3 L 07/22/20 06:45: C-Reactive Protein 3.91 H, Albumin 3.1 L, Globulin 3.9 H, Albumin/Globulin Ratio 0.8 L 07/22/20 06:45: D-Dimer 0.75 H 07/22/20 06:45: RDW 11.3 L, Neutrophils # 6.6 H, Monocytes # 1.0 H Radiology Reviewed by me: Yes (CTApneumonia) Hospitalist ROS - Review of Systems Cardiovascular: denies: chest pain, palpitations, orthopnea, paroxysmal noc. dyspnea, edema, light headedness, other Gastrointestinal: denies: nausea, vomiting, abdominal pain, diarrhea, constipation, melena, hematochezia, other - Medication Medications: Active Medications Generic Name Dose Route Start Last Admin Trade Name Oseasq PRN Reason Stop Dose Admin Acetaminophen 650 mg 07/19/20 13:49 07/22/20 10:40 Acetaminophen 325 Mg Tab PO 650 mg Q4H PRN Administration Headache/Fever/Mild Pain (1-3) Hydrocodone Bitart/Acetaminophen 1 tab 07/19/20 13:49 07/21/20 20:01 Hydrocodone/Acetaminophen 5/325 Mg Tablet PO 1 tab Q4H PRN Administration Moderate Pain (4-6) Albuterol Sulfate 2 puff 07/20/20 22:30 07/22/20 14:05 Albuterol 200 Puff (6.7gm Inhaler) INH 2 puff [id number] HINA Administration Ascorbic Acid 1,000 mg 07/20/20 09:00 07/22/20 08:00 Ascorbic Acid 500 Mg Chewable Tablet PO 1,000 mg DAILY HINA Administration Aspirin 81 mg 07/20/20 09:00 07/22/20 08:00 Aspirin 81 Mg Enteric Coated Tablet PO 81 mg DAILY HINA Administration Benzonatate 100 mg 07/19/20 15:00 07/22/20 14:06 Benzonatate 100 Mg Cap PO 100 mg TID HINA Administration Cholecalciferol 2,000 units 07/20/20 09:00 07/22/20 08:00 Cholecalciferol 1,000 Units (25 Mcg) Tab PO 2,000 units DAILY HINA Administration Dexamethasone 6 mg 07/20/20 09:00 07/22/20 08:00 Dexamethasone 4 Mg/Ml Vial SLOW IVP 6 mg DAILY HINA Administration Enoxaparin Sodium 40 mg 07/20/20 21:00 07/22/20 08:01 Enoxaparin Sodium 40 Mg/0.4 Ml Syringe SC 40 mg 0900,2100 HINA Administration Famotidine 20 mg 07/21/20 21:00 07/22/20 08:00 Famotidine 20 Mg Tab PO 20 mg BID HINA Administration Guaifenesin 600 mg 07/20/20 21:00 07/22/20 08:00 Guaifenesin Er 600 Mg Tab PO 600 mg Q12HR HINA Administration Guaifenesin 200 mg 07/20/20 19:13 11/28/20 20:00 Diabetic Tussin 200 Mg/10 Ml Udcup PO 200 mg Q4H PRN Administration Cough Ceftriaxone Sodium 1 gm/ 100 mls @ 200 mls/hr 07/19/20 14:00 07/22/20 14:05 Sodium Chloride IVPB 07/22/20 23:59 100 mls Q24HR HINA Administration Remdesivir 100 mg/ Sodium 250 mls @ 250 mls/hr 07/20/20 16:00 07/22/20 15:38 Chloride IV 07/23/20 16:59 250 mls 1600 HINA Administration Insulin Human Lispro 0 units 07/21/20 19:30 07/21/20 20:02 Humalog 300 Units/3 Ml Vial SC 4 unit .BEDTIME SLIDING SC PRN Administration Bedtime Correctional Scale Insulin Human Lispro 0 units 07/21/20 19:30 07/22/20 10:46 Humalog 300 Units/3 Ml Vial SC 13 units .AGGRESSIVE SLIDING PRN Administration Aggressive Correctional Scale Losartan Potassium 25 mg 07/20/20 19:14 07/22/20 08:44 Losartan 25 Mg Tab PO Not Given DAILY HINA Zinc Sulfate 220 mg 07/20/20 09:00 07/22/20 08:00 Zinc Sulfate 220 Mg Cap PO 220 mg DAILY HINA Administration - Exam General Appearance: ill appearing Neck: supple, no JVD Heart: RRR, no gallops Respiratory: no wheezes, rales, rhonchi, tachypneic Gastrointestinal: soft, normal bowel sounds, no guarding, no rigidity Extremities: no cyanosis, no clubbing Neurological: no new deficit Hosp A/P - Plan DVT proph w/lovenox, DVT proph w/SCDs Acute hypoxic respiratory failure due to COVID-19 pneumonia Diabetes mellitus type 2 uncontrolled due to steroids Hypertension Morbid obesity with a BMI 53.6 JADIEL inhibitor/tramadol allergy Plan: Continue dexamethasone. Continue remdesivir. Increase Lantus to 35 units daily. Continue O2 supplementation. Continue bronchodilators. Continue symptomatic treatment. Will continue Lovenox for DVT prophylaxis. Patient will probably require home oxygen. A.m. labs.
[2020-07-22] MEDS ORDERED: Insulin Glargine 15 UNITS in Pre-Filled Syringe SC SCH ×2 (16:30→21:00)
[2020-07-22] MEDS: HYDROcodone/Acetaminophen 5/325 mg Tablet PO PRN (20:58)
[2020-07-23] MEDS: Albuterol 200 PUFF (6.7GM INHALER) INH SCH ×6 (04:31→23:00)
[2020-07-23] MEDS: HumaLOG 300 UNITS/3 ML VIAL SC PRN ×3 (05:55→17:00)
[2020-07-23 06:49] LABS: #Lymphocytes 3.3 thou/uL (1.20-3.40); #Neutrophils 5.4 thou/uL (1.40-6.50); %Basophils 0.4 % (0.0-1.0); %Eosinophils 0.4 % (0.0-10.0); %Lymphocytes 33.5 % (21.0-51.0); %Monocytes 10.3 % (0.0-10.0); %Neutrophils 55.4 % (42.0-75.0); Hemoglobin 14.3 g/dL (12.0-16.0); Mean Corpuscular HGB CONC 32.7 g/dL (32.0-36.0); Mean Corpuscular Hemoglobin 29.9 pg (27.0-31.0); Mean Corpuscular Volume 91.4 fL (78.0-98.0); Mean Platelet Volume 7.4 fL (7.4-10.4); Platelet Count 389 thou/uL (130-400); RBC Distribution Width 11.1 % (11.5-14.5); Red Blood Cell (RBC) Count 4.79 mill/uL (4.20-5.40); White Blood Cell (WBC) Count 9.8 thou/uL (4.8-10.8)
[2020-07-23 06:56] LABS: Hemoglobin A1c 9.5 % (4.0-6.0)
[2020-07-23 07:13] LABS: ALT (SGPT) 45 U/L (8-55); AST (SGOT) 27 U/L (5-34); Alkaline Phosphatase 83 U/L (40-110); Anion Gap 15 mmol/L (10-20); BUN (Urea Nitrogen) 15 mg/dL (7.0-18.7); Bilirubin, Total 0.3 mg/dL (0.2-1.2); CRP (Inflammatory) 1.98 mg/dL (= or < 0.5); Calc. Creatinine Clearance 195 mL/min (70-130); Calcium 8.6 mg/dL (7.8-10.44); Carbon Dioxide 26 mmol/L (22-29); Chloride 102 mmol/L (98-107); Estimated GFR-MDRD Greater than 90; Globulin 3.7 g/dL (2.4-3.5); Glucose 233 mg/dL (70-105); Potassium 3.8 mmol/L (3.5-5.1); Protein, Total 6.7 g/dL (6.0-8.3); Sodium 139 mmol/L (136-145)
[2020-07-23] MEDS: Enoxaparin Sodium 40 MG/0.4 ML SYRINGE SC SCH ×2 (08:56→21:17)
[2020-07-23] MEDS: Aspirin 81 mg Enteric Coated Tablet PO SCH (08:57)
[2020-07-23] MEDS: Cholecalciferol 1,000 UNITS (25 MCG) TAB PO SCH (08:57)
[2020-07-23] MEDS: Zinc Sulfate 220 MG CAP PO SCH (08:57)
[2020-07-23] MEDS: Benzonatate 100 MG CAP PO SCH ×3 (08:57→21:17)
[2020-07-23] MEDS: Ascorbic Acid 500 mg Chewable Tablet PO SCH (08:57)
[2020-07-23] MEDS: Losartan 25 MG TAB PO SCH (08:57)
[2020-07-23] MEDS: Dexamethasone 4 mg/ml Vial SLOW IVP SCH (08:58)
[2020-07-23] MEDS: Famotidine 20 MG TAB PO SCH ×2 (08:58→21:17)
[2020-07-23] MEDS: guaiFENesin ER 600 MG TAB PO SCH ×2 (08:58→21:17)
[2020-07-23] MEDS: Insulin Glargine 35 UNITS in Pre-Filled Syringe SC SCH (09:00)
--- NOTE | 2020-07-23 14:12 | PRG ---
DATE OF SERVICE: 07/23/2020 SUBJECTIVE: The patient is feeling comfortable, still with some dyspnea, a little bit anorectic. She is having bowel movements without problems. She is walking without difficulty and has been afebrile. O2 saturations are 99% on 2 L, which is a significant improvement from prior requirements. OBJECTIVE: LUNGS: With no crackles or wheezing. HEART: S1 and S2, regular rate. ABDOMEN: Soft. Not distended. EXTREMITIES: Moves all extremities equally. NEUROLOGIC: Cognitive function appears to be intact. LABORATORY DATA: White cell count 9.8, hemoglobin 14.3. D-dimer is down to 0.7. Ferritin is down to 227. CRP is down from 9 to 1.98. She is on Decadron and remdesivir. ASSESSMENT AND DISCUSSION: Moderate COVID pneumonia, readmission because of worsening symptoms. She is fairly stable right now, on treatment with markers going down and I predict that she is going to do well. Job ID: [id number]
[2020-07-23] MEDS: REMDESIVIR (EUA) 100 MG in Sodium Chloride 0.9% 250 ML 230 ML IV SCH (15:35)
--- NOTE | 2020-07-23 16:42 | PDOC.HOSPP ---
- Subjective Encounter Date: 07/23/20 Encounter Time: 09:30 Subjective: Patient seen for follow-up regarding acute hypoxic respiratory failure. She reports feeling better. - Objective Vital Signs & Weight: Vital Signs (12 hours) Temp Pulse Resp BP Pulse Ox 07/23/20 08:00 99 07/23/20 07:45 98.3 F 57 L 18 111/70 99 Weight Weight 265 lb 6.4 oz Result Diagrams: 07/23/20 06:15 07/23/20 06:15 Additional Labs: Accuchecks 07/23/20 07/22/20 05:53 20:03 POC Glucose 233 H 361 H Labs and MAR reviewed by me Hospitalist ROS - Review of Systems Respiratory: denies: cough, shortness of breath, SOB with excertion, pleuritic pain, wheezing Gastrointestinal: denies: nausea, vomiting, abdominal pain, diarrhea, consti pation, melena, hematochezia Genitourinary: denies: dysuria, frequency, incontinence, hematuria, retention - Medication Medications: Active Medications Generic Name Dose Route Start Last Admin Trade Name Freq PRN Reason Stop Dose Admin Acetaminophen 650 mg 07/19/20 13:49 07/22/20 10:40 Acetaminophen 325 Mg Tab PO 650 mg Q4H PRN Administration Headache/Fever/Mild Pain (1-3) Hydrocodone Bitart/Acetaminophen 1 tab 07/19/20 13:49 07/22/20 20:58 Hydrocodone/Acetaminophen 5/325 Mg Tablet PO 1 tab Q4H PRN Administration Moderate Pain (4-6) Albuterol Sulfate 2 puff 07/20/20 22:30 07/23/20 14:41 Albuterol 200 Puff (6.7gm Inhaler) INH 2 puff [id number] HINA Administration Ascorbic Acid 1,000 mg 07/20/20 09:00 07/23/20 08:57 Ascorbic Acid 500 Mg Chewable Tablet PO 1,000 mg DAILY HINA Administration Aspirin 81 mg 07/20/20 09:00 07/23/20 08:57 Aspirin 81 Mg Enteric Coated Tablet PO 81 mg DAILY HINA Administration Benzonatate 100 mg 07/19/20 15:00 07/23/20 15:36 Benzonatate 100 Mg Cap PO 100 mg TID HINA Administration Cholecalciferol 2,000 units 07/20/20 09:00 07/23/20 08:57 Cholecalciferol 1,000 Units (25 Mcg) Tab PO 2,000 units DAILY HINA Administration Dexamethasone 6 mg 07/20/20 09:00 07/23/20 08:58 Dexamethasone 4 Mg/Ml Vial SLOW IVP 6 mg DAILY HINA Administration Enoxaparin Sodium 40 mg 07/20/20 21:00 07/23/20 08:56 Enoxaparin Sodium 40 Mg/0.4 Ml Syringe SC 40 mg 0900,2100 HINA Administration Famotidine 20 mg 07/21/20 21:00 07/23/20 08:58 Famotidine 20 Mg Tab PO 20 mg BID HINA Administration Guaifenesin 600 mg 07/20/20 21:00 07/23/20 08:58 Guaifenesin Er 600 Mg Tab PO 600 mg Q12HR HINA Administration Guaifenesin 200 mg 07/20/20 19:13 07/21/20 20:00 Diabetic Tussin 200 Mg/10 Ml Udcup PO 200 mg Q4H PRN Administration Cough Remdesivir 100 mg/ Sodium 250 mls @ 250 mls/hr 07/20/20 16:00 07/23/20 15:35 Chloride IV 07/23/20 16:59 250 mls 1600 HINA Administration Insulin Glargine 35 units/ 0.35 mls @ 0 mls/hr 07/23/20 09:00 07/23/20 09:00 Miscellaneous Medication SC 0.35 mls QAM HINA Administration Insulin Human Lispro 0 units 07/21/20 19:30 07/22/20 20:10 Humalog 300 Units/3 Ml Vial SC 5 unit .BEDTIME SLIDING SC PRN Administration Bedtime Correctional Scale Insulin Human Lispro 0 units 07/21/20 19:30 07/23/20 12:31 Humalog 300 Units/3 Ml Vial SC 13 units .AGGRESSIVE SLIDING PRN Administration Aggressive Correctional Scale Losartan Potassium 25 mg 07/20/20 19:14 07/23/20 08:57 Losartan 25 Mg Tab PO 25 mg DAILY HINA Administration Zinc Sulfate 220 mg 07/20/20 09:00 07/23/20 08:57 Zinc Sulfate 220 Mg Cap PO 220 mg DAILY HINA Administration - Exam General - other findings: Morbid obesity Eye: anicteric sclera ENT: moist mucosa Neck: supple Heart: RRR Respiratory: CTAB Gastrointestinal: soft Extremities: no clubbing Skin: no rashes Psychiatric: normal affect, normal behavior Hosp A/P - Plan -Assessment Acute hypoxic respiratory failure due to COVID-19 pneumonia Diabetes mellitus type 2 uncontrolled due to steroids Hypertension Morbid obesity with a BMI 53.6 JADIEL inhibitor/tramadol allergy - Plan Continue dexamethasone. Continue remdesivir, last dose today. Continue Lantus to 35 units daily. Continue O2 supplementation. Continue bronchodilators. Continue Lovenox for DVT prophylaxis. Patient will probably require home oxygen.
[2020-07-24] MEDS: HumaLOG 300 UNITS/3 ML VIAL SC PRN ×2 (05:02→12:23)
[2020-07-24] MEDS: Albuterol 200 PUFF (6.7GM INHALER) INH SCH ×3 (05:18→10:19)
[2020-07-24 08:08] VITALS: TEMP 98.3
[2020-07-24] MEDS: Ascorbic Acid 500 mg Chewable Tablet PO SCH (09:51)
[2020-07-24] MEDS: Aspirin 81 mg Enteric Coated Tablet PO SCH (09:51)
[2020-07-24] MEDS: Benzonatate 100 MG CAP PO SCH (09:51)
[2020-07-24] MEDS: Cholecalciferol 1,000 UNITS (25 MCG) TAB PO SCH (09:52)
[2020-07-24] MEDS: Zinc Sulfate 220 MG CAP PO SCH (09:52)
[2020-07-24] MEDS: Losartan 25 MG TAB PO SCH ×2 (09:52→10:34)
[2020-07-24] MEDS: Famotidine 20 MG TAB PO SCH (09:52)
[2020-07-24] MEDS: Insulin Glargine 35 UNITS in Pre-Filled Syringe SC SCH (09:53)
[2020-07-24] MEDS: guaiFENesin ER 600 MG TAB PO SCH (09:53)
[2020-07-24] MEDS: Dexamethasone 4 mg/ml Vial SLOW IVP SCH (09:53)
[2020-07-24] MEDS: Enoxaparin Sodium 40 MG/0.4 ML SYRINGE SC SCH (09:55)
--- NOTE | 2020-07-24 12:04 | PDOC.DS.DS ---
Provider - Provider Date of Admission: 07/19/20 11:41 Date of Discharge: 07/24/20 Admitting Provider: Cuco Maldonado MD Consultations: Infectious Disease (Dr. Cox) Primary Care Physician: Anupama Gregory Course - Hospital Course Hospital Course: Discharge diagnosis: 1 Acute hypoxic respiratory failure due to COVID-19 pneumonia 2. Diabetes mellitus type 2 uncontrolled due to steroids 3. Hypertension 4. Morbid obesity with a BMI 53.6 Hospital course: Patient is a pleasant 40-year-old lady who was admitted to the hospital on July 19, 2020 for COVID-19 pneumonia. She was seen by infectious disease service. She was treated with oxygen, dexamethasone, zinc, vitamin C and remdesivir. She finished her course of remdesivir on July 23, 2020. On July 24, 2020 she is saturating well on room air with exercise. She is being discharged home in a stable condition. She check her blood sugars 3 times a day and shows readings to your primary care provider. Many thanks for allowing me to participate in your patient's care. Please feel free to contact me with any questions or concerns. Discharge destination: Home Total amount of time spent coordinating this discharge: 31 minutes Resuscitation Status: 07/19/20 13:49 Resuscitation Status Routine Resuscitation Status: FULL: Full Resuscitation Discussed with: patient Additional comments: - Labs Lab Results: 07/23/20 06:15 07/23/20 06:15 Abnormal Lab Results - Last 48 hrs 07/23/20 06:15: C-Reactive Protein 1.98 H, Albumin 3.0 L, Globulin 3.7 H, Albumin/Globulin Ratio 0.8 L 07/23/20 06:15: D-Dimer 0.70 H 07/23/20 06:15: RDW 11.1 L, Monocytes % 10.3 H, Monocytes # 1.0 H 07/23/20 06:15: Hemoglobin A1c 9.5 H - Physical Exam Vitals: Vital Signs (12 hours) Temp Pulse Resp BP Pulse Ox 07/24/20 09:50 98 07/24/20 08:00 98.3 F 79 22 H 97/68 98 07/24/20 04:00 98.6 F 61 18 125/83 95 Weight Weight 265 lb 6.4 oz Physical Exam: The patient was seen and examined on the day of discharge. Patient denies chest pain or shortness of breath. Vital signs are stable. S1 and S2 are heard. Lungs are clear to auscultation bilaterally. Plan - Discharge Medications Prescriptions: Dexamethasone 6 mg PO DAILY #5 tablet Ascorbic Acid [Vitamin C] 1,000 mg PO DAILY #5 tablet Zinc Sulfate [Zinc-220] 220 mg PO DAILY #5 capsule Home Medications: Medication Instructions Recorded Confirmed Type metFORMIN HCl [Metformin ER 1,000 mg PO BID 01/07/17 07/19/20 History Gastric] Losartan [Cozaar] 25 mg PO DAILY 08/26/19 07/19/20 History Aspirin [Ecotrin Low Strength] 81 mg PO DAILY tab 07/16/20 07/19/20 Rx Ascorbic Acid [Vitamin C] 1,000 mg PO DAILY #5 tablet 07/24/20 Rx Dexamethasone 6 mg PO DAILY #5 tablet 07/24/20 Rx Zinc Sulfate [Zinc-220] 220 mg PO DAILY #5 capsule 07/24/20 Rx Allergies: lisinopril Adverse Reaction (Verified 11/11/19 13:43) COUGH tramadol Adverse Reaction (Verified 11/11/19 13:43) Anxiety - Discharge Instructions Activity:: Activity as Tolerated Nourishment:: Diabetic Diet - Follow up Plan Referrals: Anupama Gregory MD [Primary Care Provider] - 3 Days Disposition: HOME Quality - Care Measures CORE MEASURES:: N/A
[2020-07-24 14:35] VITALS: BP 115/83
--- NOTE | 2020-07-26 00:54 | PQF ---
Dear : Delmer Merlos Date 07/26/2020 Please exercise your independent, professional judgment in responding to the clarification form. Clinical indicators are provided on the bottom of this form for your review Can you please further clarify the type and depth of procedure being performed to the patient? Please check appropriate box(es): [ x ] Excisional Debridement: [ x ] Excised [ x] Cut away [ ] Other: Depth / layer: (deepest layer of debridement): [x ] Skin [ x ] Subcutaneous [ x ] Fascia [ ] Muscle [ ] Tendon [ ] Bone [ ] Non-excisional Debridement: (Removal by flushing, brushing, chemical, or washing) Depth / layer: (deepest layer of debridement): [ ] Skin [ ] Subcutaneous [ ] Fascia [ ] Muscle [ ] Tendon [ ] Bone [ ] Other procedure, please specify [ ] Unable to determine Physician Signature: Date/Time: For continuity of documentation, please document condition throughout progress notes and discharge summary. Thank You. To be completed by CDI/Coding staff for physician review: Present Clinical Indicators - Signs / Symptoms / Labs Results and Location in Medical Record [ x ] Sharp debridement of sacral decubitus OP report pg.1 07/11 [ x ] Using 10 blade, 15 blade bone roungeurs, the necrotic tissue was sharply debrided OP report pg.1 07/11 [ x ] The necrotic tissue was completely excised down to the bleeding tissue OP report pg.1 07/11 [ x ] Bleeding tissue was then controlled using electrocautery and the wound was thoroughly irrigated with saline OP report pg.1 07/11 [ x ] Stage IV sacral ulcer s/p incision and drainage DS pg.1 Present Risk Factors Results and Location in Medical Record [ x ] Bedridden H and P pg.1 [ x ] Hx of CVA H and P pg.1 [ x ] Infected non healing sacral ulcer H and P pg.1 [ x ] HTN H and P pg.1 [ x ] Gout H and P pg.1 [ x ] Septic sacral decubitus OP report pg.1 07/11 [ x ] Sepsis DS pg.1 [ x ] Smoker ED Notes 07/10 Present Treatments Results and Location in Medical Record [ x ] Sharp Debridement OP report pg.1 07/11 [ x ] IV Fluids MAR [ x ] Infectious Consult Dr. Cox 07/14 [ x ] Surgery Consult Dr. Merlos 07/21 [ x ] Clindamycin 900mg IV NOV 01 [ x ] Zosyn 4.5gm IV NOV 01 [ x ] Cefepime 2gm IV NOV 01 CDS/Tooling Manager Signature: Gene Bee Phone #: ext [phone] Date 07/26/2020 This is a permanent part of the Medical Record [facility]
== END 2020-07-24 13:32 | disposition home or self-care (01) | DRG 177 ==
LOC: ERS 10:45 → T4-A 11:41
PROVIDERS: ADMIT Internal Medicine; ATTEND Internal Medicine
PROC: 8E0ZXY6 Isolation (ICD-10-PCS; principal; 2020-07-19)
PROC: XW033E5 Introduction of Remdesivir Anti-infective into Peripheral Vein, Percutaneous Approach, New Technology Group 5 (ICD-10-PCS; 2020-07-19)
DX: U07.1 COVID-19 (principal); J12.89 Other viral pneumonia; J96.01 Acute respiratory failure with hypoxia; Z68.43 Body mass index [BMI] 50.0-59.9, adult; E66.01 Morbid (severe) obesity due to excess calories; E03.9 Hypothyroidism, unspecified; E11.65 Type 2 diabetes mellitus with hyperglycemia; T38.0X5A Adverse effect of glucocorticoids and synthetic analogues, initial encounter; I10 Essential (primary) hypertension; Z90.49 Acquired absence of other specified parts of digestive tract; Z88.8 Allergy status to other drugs, medicaments and biological substances; Z79.84 Long term (current) use of oral hypoglycemic drugs; Z79.82 Long term (current) use of aspirin; Z98.51 Tubal ligation status; Z88.5 Allergy status to narcotic agent; Z83.3 Family history of diabetes mellitus; Z80.1 Family history of malignant neoplasm of trachea, bronchus and lung
CPT/HCPCS: 36415; 36416; 80053; 82728; 83036; 83735; 84100; 85007; 85025; 85027; 85379; 86140; 93005; 96372; J0696; J1100; J1650; J1815; J3490; J7050

== ENCOUNTER 2021-02-11 15:19 | Outpatient (CLI) | payer MEDICAID | END 2021-02-11 15:20 | disposition home or self-care (01) | LOC: BICULT 15:19 | PROVIDERS: ATTEND Student in an Organized Health Care Education/Training Program | DX: E04.2 Nontoxic multinodular goiter (principal); E07.89 Other specified disorders of thyroid | CPT/HCPCS: 76536 ==

== ENCOUNTER 2021-08-22 15:34 | Outpatient (CLI) | payer OTHER | END 2021-08-22 15:35 | disposition home or self-care (01) | LOC: BICMAMMO 15:34 | PROVIDERS: ATTEND Family Medicine | DX: Z12.31 Encounter for screening mammogram for malignant neoplasm of breast (principal) | CPT/HCPCS: 77063; 77067 ==

== ENCOUNTER 2022-02-11 13:35 | Outpatient (CLI) | payer OTHER | END 2022-02-11 13:36 | disposition home or self-care (01) | LOC: BICULT 13:35 | PROVIDERS: ATTEND Student in an Organized Health Care Education/Training Program | DX: E04.2 Nontoxic multinodular goiter (principal) | CPT/HCPCS: 76536 ==